=== PATIENT | female | born 1985 | race Caucasian/White ===

== ENCOUNTER → 2017-12-28 16:31 | Outpatient (CLI) | payer OTHER, SELFPAY ==
[2017-12-28 18:08] LABS: Thyroid Stim Hormone (TSH) 1.82 uIU/mL (0.358-3.74)
[2017-12-28 18:16] LABS: Vitamin D,25 Hydroxy 23.1 ng/mL (29.95-100.01)
== END ==
PROVIDERS: Family Provider Family Medicine; PCP Family Medicine; Visit Provider Family Medicine
DX: F41.9 Anxiety disorder, unspecified (principal)
CPT/HCPCS: 36415; 82306; 84443

== ENCOUNTER → 2018-01-30 09:55 | Outpatient (CLI) | payer OTHER, SELFPAY ==
[2017-06-27 10:36] VITALS: BMI 22.1
[2018-01-30 12:31] LABS: Absolute Lymphocyte Count 1.49 X10^3/ul (0.83-4.51); Absolute Neutrophil Count 6.6 X10^3/uL (2.0-7.7); Basophil# 0.05 X10^3/uL; Basophil% 0.6 % (0-1); Eosinophil# 0.25 X10^3/uL; Eosinophils% 2.8 % (0-5); Hematocrit 43.6 % (37-47); Hemoglobin 14.1 g/dl (12.0-15.0); Lymphocyte # 1.49 X10^3/ul (4.0); Lymphocyte % 16.4 % (19-41); Mean Corp Hgb Conc 32.3 g/gl (32-36); Mean Corpuscular Hgb 30.1 pg (27.0-32.0); Mean Platelet Vol. 9.4 fl (6.2-12.0); Monocyte# 0.69 X10^3/uL; Monocyte% 7.6 % (0-10); Neutrophil # 6.58 X10^3/uL (2.7-7.7); Neutrophil % 72.5 % (47-70); Platelet Count 370 K/mm3 (150-450); RBC Distribution Width CV 12.9 % (11.6-14.6); RBC Distribution Width SD 43.7 fl (35.1-43.9); Red Blood Count 4.69 M/mm3 (4.2-5.4); White Blood Count 9.1 K/mm3 (4.4-11.0)
[2018-01-30 12:41] LABS: POSITIVE COUNT NO; POSITIVE DIFFERENTIAL NO; POSITIVE MORPHOLOGY NO
--- OUTSIDE RECORDS SUMMARY | 2018-05-03 12:56 | XMS RPT_ITS ---
:1985 Author Organization OHIP Care Team Providers Name Role Phone Renata Mendez Attending Unavailable PROVIDER, UNKNOWN Referring Unavailable No, PCP Primary Care Unavailable Noé Hurtado Attending Unavailable PROVIDER, UNKNOWN Referring Unavailable PROVIDER, UNKNOWN Primary Care Unavailable Noé Hurtado Attending Unavailable PROVIDER, UNKNOWN Referring Unavailable No, PCP Primary Care Unavailable Nething, Vance Attending Unavailable PROVIDER, UNKNOWN Referring Unavailable No, PCP Primary Care Unavailable Nething, Vance Attending Unavailable PROVIDER, UNKNOWN Referring Unavailable No, PCP Primary Care Unavailable Nething, Vance Attending Unavailable PROVIDER, UNKNOWN Referring Unavailable Miedel, Franca Primary Care Unavailable Nething, Vance Attending Unavailable PROVIDER, UNKNOWN Referring Unavailable Miedel, Franca Primary Care Unavailable Nething, Vance Attending Unavailable PROVIDER, UNKNOWN Referring Unavailable Miedel, Franca Primary Care Unavailable Amber Fulton Attending Unavailable Sindhu, Talia Referring Unavailable Talia Manley Primary Care Unavailable Miedel, Franca Attending Unavailable Miedel, Franca Primary Care Unavailable Miedel, Franca Attending Unavailable Miedel, Franca Primary Care Unavailable PROBLEMS PROBLEMS DATE TYPE CONDITION / CODE ATTENDING STATUS SOURCE 02/07/2018 Admitting Unspecified Nething, Active [facility] Diagnosis hydronephrosis / [facility] N13.30(ICD-10) Repository 02/07/2018 Admitting Crossing vessel and Nething, 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 [facility] w/o hydronephrosis / Repository N13.5(ICD-10) 01/18/2018 Admitting Congenital occlusion Nething, 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 / Repository Q62.11(ICD-10) 01/18/2018 Admitting Calculus of kidney / Nething, Active [facility] Diagnosis N20.0(ICD-10) [facility] Repository 12/28/2017 Unknown F41.9 [facility] Active [place] disorder, Community unspecified / Hospital F41.9(ICD-10) Repository 10/22/2017 Admitting Hydronephrosis w Nething, Active [facility] Diagnosis ureteral stricture, [facility] NEC / N13.1(ICD-10) Repository 10/22/2017 Admitting Hydronephrosis with Nething, Active [facility] Diagnosis renal and ureteral [facility] calculous Repository obstruction / N13.2(ICD-10) 10/17/2017 Admitting Encounter for other Nething, Active [facility] Diagnosis preprocedural [facility] examination / Repository Z01.818(ICD-10) 07/11/2017 Admitting Other specified Roter, [facility] and ureter / Repository N28.89(ICD-10) 07/11/2017 Admitting Unspecified Renata Mendez [facility] Diagnosis abdominal pain / System R10.9(ICD-10) Repository PROCEDURES PROCEDURES No Procedure Records FoundRESULTS RESULTS PROGRESS Observed: 02/10/2018 Status: COMPLETED Source: [place] 9:53 AM [facility] REPOSITORY HNO ID: [id number] Author: Kristian Hendrickson (Rhonda) Isidro Service: (none) Author Type: Nurse Practitioner Type: Progress Notes Filed: 02/10/2018 9:55 AM Note Text: Subjective HPI Patient presents with: Ear Pain: bilateral ears, sore throat and cough on amoxicillin x 7 days from PCP States sharp shooting intermittent pain. Denies any otc treatment for symptoms. Review of Systems Constitutional: Negative for chills, fever and malaise/fatigue. HENT: Positive for congestion, ear pain and sore throat. Eyes: Negative for discharge and redness. Respiratory: Positive for cough. Negative for hemoptysis, sputum production, shortness of breath and wheezing. Gastrointestinal: Negative for abdominal pain, diarrhea, nausea and vomiting. Skin: Negative for rash. Neurological: Negative for headaches. PAST MEDICAL HISTORY Diagnosis Date - Anemia PAST SURGICAL HISTORY Procedure Laterality Date - INCISION EARDRUM,ASPIR,GEN ANESTH Myringotomy/tubes - PAST SURGICAL HISTORY OF wisdom teeth ALLERGIES Patient has no known allergies. MEDICATIONS levonorgestrel (MIRENA) 20 mcg/24 hr (5 years) IUD Inserted in office predniSONE (DELTASONE) 20 mg tablet Take 2 tablets by mouth once daily for 5 days. Take daily with food. Fxcztmvq-Ac-Msu-Fe-FA tab Take 1 tablet by mouth. FAMILY HISTORY Problem Relation Age of Onset - Heart Father A FIB, PACEMAKER, HYPOTENTION - Breast Cancer Maternal Grandmother - Heart Maternal Grandfather HEART DISEASE - Breast Cancer Paternal Grandmother - Colon Cancer Paternal Grandfather - Heart Paternal Grandfather - other (migraines [Other]) Father - Emphysema Paternal Grandfather - other (Parkinsons disease [Other]) Maternal Grandfather - Cancer Paternal Grandfather Social History Substance Use Topics - Smoking status: Never Smoker - Smokeless tobacco: Never Used - Alcohol use No Objective Physical Exam Constitutional: She is well-developed, well-nourished, and in no distress. HENT: Head: Normocephalic. Right Ear: External ear and ear canal normal. Tympanic membrane is not erythematous. A middle ear effusion (clear) is present. Left Ear: External ear and ear canal normal. Tympanic membrane is not erythematous. A middle ear effusion (clear) is present. Nose: Rhinorrhea present. Right sinus exhibits no maxillary sinus tenderness and no frontal sinus tenderness. Left sinus exhibits no maxillary sinus tenderness and no frontal sinus tenderness. Mouth/Throat: Posterior oropharyngeal erythema (PND) present. Eyes: Conjunctivae are normal. Neck: Normal range of motion. Neck supple. Cardiovascular: Normal rate, regular rhythm and normal heart sounds. Pulmonary/Chest: Effort normal and breath sounds normal. No respiratory distress. She has no wheezes. Abdominal: Soft. She exhibits no distension. There is no tenderness. Lymphadenopathy: She has no cervical adenopathy. Skin: Skin is warm and dry. No rash noted. Nursing note and vitals reviewed. ASSESSMENT/PLAN: 1. Fluid level behind tympanic membrane of both ears - ICD9: 381.4, ICD10: H65.93 - May finish Amoxil -Prednisone - Supportive care with plenty of fluids, rest, and analgesia prn. - Follow up in 3-5 days if symptoms persist or worsen. Prescription instructions reviewed with patient as applicable. Patient advised if symptoms do not improve or if symptoms worsen sooner, to contact their primary care physician. Potential red flag symptoms discussed with the patient. Reviewed appropriate action plan to take if red flag symptoms occur. Patient agreeable to treatment plan. Kristian Osorio APRN.ROVING CAN TENDER CNOV Observed: 02/10/2018 Status: COMPLETED Source: [place] 8:45 AM [facility] REPOSITORY Office Visit (WSTR) JOSIE SÁNCHEZ ([id number]) 1985 F Date Time Provider Department 02/10/18 8:45 AM KRISTIAN OSORIO (FINAL TESTER) WSTR During your visit today, we recorded the following information about you: Temperature Pulse Respiration Blood pressure 96.9 degrees 78/minute 16/minute 120/68 Weight Last Period 55.3 kg 01/27/18 Kristian Osorio APRN.CNP 02/10/2018 9:55 AM Signed Subjective HPI Patient presents with: Ear Pain: bilateral ears, sore throat and cough on amoxicillin x 7 days from [facility] States sharp shooting intermittent pain. Denies any otc treatment for symptoms. Review of Systems Constitutional: Negative for chills, fever and malaise/fatigue. HENT: Positive for congestion, ear pain and sore throat. Eyes: Negative for discharge and redness. Respiratory: Positive for cough. Negative for hemoptysis, sputum production, shortness of breath and wheezing. Gastrointestinal: Negative for abdominal pain, diarrhea, nausea and vomiting. Skin: Negative for rash. Neurological: Negative for headaches. PAST MEDICAL HISTORY Diagnosis Date - Anemia PAST SURGICAL HISTORY Procedure Laterality Date - INCISION EARDRUM,ASPIR,GEN ANESTH Myringotomy/tubes - PAST SURGICAL HISTORY OF wisdom teeth ALLERGIES Patient has no known allergies. MEDICATIONS levonorgestrel (MIRENA) 20 mcg/24 hr (5 years) IUD Inserted in office predniSONE (DELTASONE) 20 mg tablet Take 2 tablets by mouth once daily for 5 days. Take daily with food. Jxyziken-Mw-Lmm-Fe-FA tab Take 1 tablet by mouth. FAMILY HISTORY Problem Relation Age of Onset - Heart Father A FIB, PACEMAKER, HYPOTENTION - Breast Cancer Maternal Grandmother - Heart Maternal Grandfather HEART DISEASE - Breast Cancer Paternal Grandmother - Colon Cancer Paternal Grandfather - Heart Paternal Grandfather - other (migraines [Other]) Father - Emphysema Paternal Grandfather - other (Parkinsons disease [Other]) Maternal Grandfather - Cancer Paternal Grandfather Social History Substance Use Topics - Smoking status: Never Smoker - Smokeless tobacco: Never Used - Alcohol use No Objective Physical Exam Constitutional: She is well-developed, well-nourished, and in no distress. HENT: Head: Normocephalic. Right Ear: External ear and ear canal normal. Tympanic membrane is not erythematous. A middle ear effusion (clear) is present. Left Ear: External ear and ear canal normal. Tympanic membrane is not erythematous. A middle ear effusion (clear) is present. Nose: Rhinorrhea present. Right sinus exhibits no maxillary sinus tenderness and no frontal sinus tenderness. Left sinus exhibits no maxillary sinus tenderness and no frontal sinus tenderness. Mouth/Throat: Posterior oropharyngeal erythema (PND) present. Eyes: Conjunctivae are normal. Neck: Normal range of motion. Neck supple. Cardiovascular: Normal rate, regular rhythm and normal heart sounds. Pulmonary/Chest: Effort normal and breath sounds normal. No respiratory distress. She has no wheezes. Abdominal: Soft. She exhibits no distension. There is no tenderness. Lymphadenopathy: She has no cervical adenopathy. Skin: Skin is warm and dry. No rash noted. Nursing note and vitals reviewed. ASSESSMENT/PLAN: 1. Fluid level behind tympanic membrane of both ears - ICD9: 381.4, ICD10: H65.93 - June finish Amoxil -Prednisone - Supportive care with plenty of fluids, rest, and analgesia prn. - Follow up in 3-5 days if symptoms persist or worsen. Prescription instructions reviewed with patient as applicable. Patient advised if symptoms do not improve or if symptoms worsen sooner, to contact their primary care physician. Potential red flag symptoms discussed with the patient. Reviewed appropriate action plan to take if red flag symptoms occur. Patient agreeable to treatment plan. Kristian Osorio, TREVER.ROVING CAN TENDER Referring Provider: SELF [[id number]] Allergies As of Date: 02/10/2018 (No Known Allergies) Date Reviewed: 02/10/2018 Reviewed by: Lia Camargo Ma - Fully Assessed Reason for Visit: Ear Pain [817] Cmt: bilateral ears, sore throat and cough on amoxicillin x 7 days Primary Visit Diagnosis:Fluid level behind tympanic membrane of both ears [H65.93] Order(s):predniSONE (DELTASONE) 20 mg tabletTake 2 tablets by mouth once daily for 5 days. Take daily with food.Disp: 10 tabletRfl: 0 Prescriptions as of 02/10/2018 Sig: LEVONORGESTREL 20 MCG/24 HR (* Inserted in office Patient not taking: Reported on 02/10/2018 PREDNISONE 20 MG TABLET Take 2 tablets by mouth once * VITAMIN,CALCIUM,MINE* Take 1 tablet by mouth. Problem List As Of Date 02/10/2018 Noted Resolved Encounter for supervision of normal first pregn*INVALID FOR*01/19/2016 More... Prescriptions ordered this encounter Disp Refills Start End PREDNISONE 20 MG TABLET 10 t* 0 02/10/2018 02/15/2018 Route: ORAL Sig: Take 2 tablets by mouth once daily for 5 days. Take daily with food. Disposition: Return if symptoms worsen or fail to improve. Follow-up and Disposition History Recorded Encounter Status:Closed by KRISTIAN OSORIO on 02/10/18 NM KIDNEY IMAGING W/ Observed: 02/07/2018 Status: F Source: [employer] W/ PHARM 10:12 AM SYSTEM REPOSITORY Patient Name: JOSIE SÁNCHEZ Nuc Med Exam Date/Time 02/07/2018 09:39:39 EST Exam NM Kidney Imaging w/ Flow w/ Pharm Ordering Physician MD CASON JOSHUA B Accession Number [id number] CPT4 Codes 72796 () Reason For Exam Crossing vessel and stricture of ureter without hydronephrosis Report Indication: UPJ obstruction. The patient was injected with 8.9 mCi of tech 99m MAG3 and underwent routine renal scintigraphy. Comparison was made to the study dated 08/29/2017. Prompt flow is identified bilaterally. There is cortical uptake and excretion bilaterally. There is no evidence of right-sided obstruction. During the course of the study, there is progressive accumulation of radiotracer into a dilated left intrarenal collecting system which persists on post void imaging. The degree of dilation appears to have decreased when compared to the previous study. Split renal functions are fairly symmetric at 53% for the left kidney and 47% for the right kidney. The patient was injected with 40 mg of intravenous Lasix and imaging was continued for an additional 20 minutes. There is physiologic response by the left kidney to Lasix administration. The post Lasix T1/2 for the left kidney is approximately 4 minutes. There is no evidence of left- sided obstruction. This has significantly improved when compared to the prior study. Previously, the post Lasix T1/2 of the left kidney was greater than 20 minutes. Post Lasix imaging of the right kidney is noncontributory. IMPRESSION: 1. Left-sided hydronephrosis. The degree of hydronephrosis appears to have decreased when compared to the previous study. Physiologic response by the left kidney to Lasix administration with a post Lasix 1/2 of approximately 4 minutes. No evidence of left-sided obstruction. 2. No evidence of right-sided hydronephrosis or obstruction. 3. Fairly symmetric split renal functions of 53% for the left kidney and 47% for the right kidney. Report Dictated on Final Dictating Physician: DO FRANKLIN ANTHONY Signed Date and Time: 02/07/2018 10:22 am Signed by: DO FRANKLIN ANTHONY Transcribed Date and Time: 02/07/2018 10:24 CALCULI ANALYSIS(STONE) Collected: 02/03/2018 Status: F Source: [employer] 7:00 AM SYSTEM REPOSITORY TYPE CODE TESTS RESULT OUT OF REFERENCE UNITS RANGE LAB CALCR mg Calculi Mass 69 LAB CALC1 NA Calculi Number 1 LAB CALC2 mm Calculi Size 5 to 9 LAB CALC3 NA Calculi Description See Note Result Comment: Specimen consists of a single, medium, light jeffers, crystalline calculus. LAB CALC4 NA Calculi Composition See Note Result Comment: Calculi composed primarily of: 20% calcium oxalate (monohydrate and dihydrate), 10% calcium monohydrogen phosphate dihydrate (brushite), and 70% calcium phosphate (hydroxy- and carbonate- apatite). INTERPRETIVE INFORMATION: Calculi (Stone) analysis Calculi are the products of physiological processes that yield crystalline compounds in a matrix of biological compounds and blood. Matrix components are not reported. The clinically significant crystalline components identified in calculi specimens are reported. Gross description may not be consistent with composition determined by FTIR analysis. Performed by [facility], [address] [place] [id number] [email or web address], Dionicio Cage MD - Lab. Director Performed By: #### CALCO #### The performing lab is in the report. CBC W/DIFF, AUTOMATED Collected: 01/30/2018 Status: F Source: [place] 9:57 AM [facility] REPOSITORY TYPE CODE TESTS RESULT OUT OF RANGE REFERENCE UNITS LAB L100.1000 4.4-11.0 K/mm3 Normal WBC 9.1 LAB L100.1200 4.2-5.4 M/mm3 Normal RBC 4.69 LAB L100.1300 12.0-15.0 g/dl Normal HGB 14.1 LAB L100.1400 37-47 % Normal HCT 43.6 LAB L100.1500 81-99 fL Normal MCV 93.0 LAB L100.1600 27.0-32.0 pg Normal MCH 30.1 LAB L100.1700 32-36 g/gl Normal MCHC 32.3 LAB L100.1810 11.6-14.6 % Normal RDW CV 12.9 LAB L100.1820 35.1-43.9 fl Normal RDW SD 43.7 LAB L100.1900 150-450 K/mm3 Normal PLT 370 LAB L100.2000 6.2-12.0 fl Normal MPV 9.4 LAB L100.2100 47-70 % High NEUT% 72.5 LAB L100.2200 19-41 % Low LY% 16.4 LAB L100.2300 0-10 % Normal MONO% 7.6 LAB L100.2400 0-5 % Normal EO% 2.8 LAB L100.2500 0-1 % Normal BASO% 0.6 LAB L100.2550 0.0-0.9 % Normal IM GRAN % 0.100 Result Comment: IG% - Immature Granulocytes (promyelocytes, myelocytes and metamyelocytes) > 1% indicates that a LEFT SHIFT is Present. LAB L100.2620 2.0-7.7 X10 3/uL Normal Absolute Neut 6.6 LAB L100.2720 0.83-4.51 X10 3/ul Normal Absolute Lymph 1.49 Performed By: #### L100.0100 #### [facility] [address] [place] [address]. [place], [place], [address] US RETROPERITONEAL LIMITED Observed: 01/18/2018 Status: F Source: [employer] 10:55 AM SYSTEM REPOSITORY Patient Name: JOSIE SÁNCHEZ Ultrasound Exam Date/Time 01/18/2018 08:45:00 EST Exam US Retroperitoneal Limited Ordering Physician MD CASON JOSHUA B Accession Number [id number] CPT4 Codes 75750 () Reason For Exam Congenital occlusion of ureteropelvic junction Report Renal ultrasound, 01/18/2018. Reason for examination: Congenital ureteropelvic junction obstruction. COMPARISON: CT of the abdomen and pelvis dated July 11, 2017. FINDINGS: The right kidney measures 11.1 x 4.3 x 3.8 cm. The left kidney measures 11.6 x 5.3 x 4.5 cm. No renal lesion is noted. There is mild to moderate left hydronephrosis which appears to have decreased somewhat compared with the prior CT. Nonobstructing subcentimeter calculi are noted in the left kidney, the largest of which measures approximately 0.8 cm in maximum dimension. Limited imaging urinary bladder demonstrates no mass or calculus. IMPRESSION: Mild to moderate left hydronephrosis which appears somewhat decreased compared with the prior CT. Nonobstructing left renal calculi. Report Dictated on Final Dictating Physician: MD MAZARIEGOS JOE M Signed Date and Time: 01/18/2018 11:35 am Signed by: MD MAZARIEGOS JOE M Transcribed Date and Time: 01/18/2018 11:36 THYROID STIM HORMONE Collected: 12/28/2017 Status: F Source: [place] (TSH) 4:34 PM [facility] REPOSITORY TYPE CODE TESTS RESULT OUT OF RANGE REFERENCE UNITS LAB L501.9520 0.358-3.74 uIU/mL Normal TSH 1.82 Performed By: #### L501.9520 #### [facility] [address] [facility] [facility]. [place], [place], [address] VITAMIN D,25 HYDROXY Collected: 12/28/2017 Status: F Source: [place] 4:34 PM [facility] REPOSITORY TYPE CODE TESTS RESULT OUT OF REFERENCE UNITS RANGE LAB L506.1000 29.95-100.01 ng/mL Low Vitamin D 23.1 25-OH Result Comment: Vitamin D 25(OH) Status Range Deficiency <20 ng/mL (50nmol/L) Insuffciency 20 - 30 ng/mL (50 - 75 nmol/L) Sufficiency 30 - 100 ng/mL (75 - 250 nmol/L) Toxicity >100 ng/mL (>250 nmol/L) Performed By: #### L506.1000 #### [facility] [address] [place], [place], [id number] HEMOGRAM W/ AUTODIFF Collected: 10/23/2017 Status: F Source: [employer] 4:56 AM SYSTEM REPOSITORY TYPE CODE TESTS RESULT OUT OF REFERENCE UNITS RANGE LAB IWBC 3.6-10.7 10*3/uL WBC High 11.0 LAB RBC 3.80-5.20 10*6/uL RBC Normal 4.31 LAB HGB 11.7-16.0 g/dL Hemoglobin Normal 13.4 LAB HCT 35.0-47.0 % Hematocrit Normal 39.8 LAB MCV 79.0-98.0 fL MCV Normal 92.3 LAB MCH 26.0-34.0 pg MCH Normal 31.1 LAB MCHC 32.0-36.0 % MCHC Normal 33.7 LAB RDW 11.5-14.5 % RDW Normal 12.7 LAB PLT 140-440 10*3/uL Platelet Normal 301 LAB MPV 7.4-10.4 fL MPV Normal 8.1 LAB GRAN% 40.0-80.0 % Granulocytes High 88.0 LAB LYMP% 20.0-40.0 % Low Lymphocytes 6.9 LAB MONO% 2.0-10.0 % Monocytes Normal 5.0 LAB EOS% 1.0-6.0 % Low Eosinophils 0.0 LAB BAS% 0.0-2.0 % Basophils Normal 0.1 LAB ANC 1.8-7.0 10*3/uL Abs High Neutrophile Cnt 9.6 LAB ALC 1.0-4.3 10*3/uL Low Abs Lymph Cnt 0.8 LAB AMC 0.0-0.8 10*3/uL Abs Monocyte Normal Cnt 0.6 LAB AEC 0.0-0.5 10*3/uL Abs Eosin Cnt Normal 0.0 LAB ABC 0.0-0.2 10*3/uL Abs Baso Cnt Normal 0.0 Performed By: #### HEMDF #### [email or web address] [address] [place] [phone] BASIC METABOLIC PANEL Collected: 10/23/2017 Status: F Source: [employer] 4:56 AM SYSTEM REPOSITORY TYPE CODE TESTS RESULT OUT OF RANGE REFERENCE UNITS LAB NA3 137-145 mmol/L Sodium Normal 139 LAB K3 3.5-5.1 mmol/L Normal Potassium 4.5 LAB CL3 98-107 mmol/L High Chloride 111 LAB CO23 22-30 mmol/L Low Carbon Dioxide 21 LAB ANIN3 NA Anion Gap 7 LAB GLUC3 70-100 mg/dL High Glucose 105 LAB BUN3 7-20 mg/dL Urea Normal Nitrogen 11 LAB CRET3 0.52-1.25 mg/dL Normal Creatinine 0.73 LAB GF3BR >60 mL/min eGFR > 60.0 LAB GF3WR >60 mL/min eGFR OTHER > 60.0 Result Comment: Source- MDRD equation with creatinine calibration to IDMS(NKDEP) eGFR not recommended for drug dose adjustment LAB CA3 8.4-10.4 mg/dL Low Calcium 8.2 Performed By: #### BMP3 #### [facility] [address] [place] [id number] CREATININE, BODY FLUID Collected: 10/23/2017 Status: F Source: [employer] 4:56 AM SYSTEM REPOSITORY TYPE CODE TESTS RESULT OUT OF RANGE REFERENCE UNITS LAB 3CRMS No Range mg/dL 0.76 Creatinine, Body Fluid LAB 3SRC NA Fluid Drainage(JOSHUA) Type Performed By: #### CRMS3 #### [facility] [address] [phone] Observed: 10/22/2017 Status: F Source: [employer] SURGICAL PATHOLOGY 7:25 PM SYSTEM REPOSITORY [id number] [facility] PATHOLOGY AND LABORATORY MEDICINE [address] [place] [id number] FINAL SURGICAL PATHOLOGY REPORT NAME: JOSIE SÁNCHEZ : 1985 32 Y F BILLING NO.: [id number] LOCATION: [address] [place] [address] B PROCEDURE 10/22/2017 DATE: SURGEON: VANCE CASON M.D. RECEIVED 10/23/2017 DATE: ATTENDING: VANCE CASON M.D. REPORT DATE: 10/24/2017 COPIES TO: DIAGNOSIS: LEFT UPJ OBSTRUCTION, EXCISION - BENIGN UROTHELIUM WITH MINIMAL CHRONIC INFLAMMATION NEGATIVE FOR DYSPLASIA OR MALIGNANCY JAW/SSF <Sign Out Dr. Malone> VANCE BORREGO M.D. CLINICAL INFORMATION: UPJ obstruction SPECIMEN: TISSUE NOS , left UP J OBSTRUCTION GROSS DESCRIPTION: Left renal calculi Received in formalin is an irregular rubbery castellanos tissue segment 0.7 x 0.7 x 0.6 cm. The cut surfaces are white-castellanos and grossly unremarkable. The specimen is bisected and entirely submitted. (2 ns, 1) JCK/IRWIN Disclaimer: The following statement applies to all immunohistochemistry, in situ hybridization, molecular studies, and immunofluorescence testing. The use of one or more reagents in the above tests is regulated as an analyte specific reagent (ASR). These tests were developed and their performance characteristics determined by the clinical laboratories of [facility]. They have not been cleared by the US Food and Drug Administration (FDA). The FDA has determined that such clearance or approval is not necessary. All the above immunostains were performed on paraffin embedded tissue. Appropriate positive and negative controls (where applicable) were run in parallel with the patient's specimen; these controls showed expected staining pattern, with acceptable intensity of staining. Immunohistochemical assays have not been validated on decalcified tissues. Results should be interpreted with caution given the raised possibility of false negativity on decalcified specimens. Professional Performing Location: [place] [address]. DEPARTMENT OF PATHOLOGY AND LABORATORY MEDICINE [place], [place] [address] CALCULI ANALYSIS(STONE) Collected: 10/22/2017 Status: F Source: [employer] 6:38 PM SYSTEM REPOSITORY TYPE CODE TESTS RESULT OUT OF REFERENCE UNITS RANGE LAB CALCR mg Calculi Mass 42 LAB CALC1 NA Calculi Number 3 LAB CALC2 mm Calculi Size Various LAB CALC3 NA Calculi Description See Note Result Comment: Specimen consists of three, various sized (1 mm to 9 mm), brown/jeffers, irregular calculi fragments. LAB CALC4 NA Calculi Composition See Note Result Comment: Calculi composed primarily of: 10% calcium oxalate monohydrate, and 90% calcium phosphate (hydroxy- and carbonate- apatite). INTERPRETIVE INFORMATION: Calculi (Stone) analysis Calculi are the products of physiological processes that yield crystalline compounds in a matrix of biological compounds and blood. Matrix components are not reported. The clinically significant crystalline components identified in calculi specimens are reported. Gross description may not be consistent with composition determined by FTIR analysis. Performed by [facility], [address] [place] [id number] [email or web address], Dionicio Cage MD - Lab. Director Performed By: #### CALCO #### The performing lab is in the report. HCG,URINE QUAL Collected: 10/22/2017 Status: F Source: [employer] 2:10 PM SYSTEM REPOSITORY TYPE CODE TESTS RESULT OUT OF REFERENCE UNITS RANGE LAB HCGUR Negative NA Negative HCG,Urine Qual Result Comment: is the most common reason for HCG in urine, although choriocarcinoma, hydatidiform mole, and certain nontropho- blastic malignancies also result in detectable urinary HCG levels. Sensitivity = 20mIU/mL. Performed By: #### HCGUR #### [employer] [address] [place] [address] HEMOGLOBIN AND Collected: 10/17/2017 Status: F Source: [employer] HEMATOCRIT 9:57 AM SYSTEM REPOSITORY TYPE CODE TESTS RESULT OUT OF RANGE REFERENCE UNITS LAB HGB 11.7-16.0 g/dL Normal Hemoglobin 13.9 LAB HCT 35.0-47.0 % Normal Hematocrit 41.6 Performed By: #### HGHCT #### [employer] [address] [place] [address] NM KIDNEY IMAGING W/ Observed: 08/30/2017 Status: F Source: [employer] FLOW W/ PHARM 7:15 AM SYSTEM REPOSITORY Patient Name: JOSIE SÁNCHEZ Nuc Med Exam Date/Time 08/29/2017 15:44:07 EDT Exam NM Kidney Imaging w/ Flow w/ Pharm Ordering Physician NOÉ HURTADO Accession Number [id number] CPT4 Codes 78500 () Reason For Exam left UPJ obstruction, left hydronephrosis Report History: Hydronephrosis Dose: 8.5 mCi Tc99m MAG3 Findings: Imaging was viewed on a computer workstation. Routine imaging shows uptake and excretion bilaterally. The left kidney contributes 50 % and the right contributes 50 % to total renal function. There is left-sided collecting system distention and tracer retention, as seen on post void imaging. Lasix was administered and imaging continued. The T1/2 for emptying on the left is greater than 20 minutes. The normal range is less than 10 minutes (10- 20 minutes suggests partial obstruction, over twenty minutes definite obstruction). IMPRESSION: Distended left collecting system with poor response to Lasix compatible with obstruction. Report Dictated on Final Dictated: 08/30/2017 7:15 am Dictating Physician: MD TALBOT JOHN Signed Date and Time: 08/30/2017 7:17 am Signed by: MD TALBOT JOHN Transcribed Date and Time: 08/30/2017 7:15 CT ABDOMEN/PELVIS W/O Observed: 07/11/2017 Status: F Source: [employer] CONTRAST 2:03 PM SYSTEM REPOSITORY Patient Name: JOSIE SÁNCHEZ CT Exam Date/Time 07/11/2017 13:39:[address] Abdomen/Pelvis (No PO, No IV) Ordering Physician RENATA KRISHNA Accession Number [id number] CPT4 Codes 83038 (CT Abdomen/Pelvis (No PO, No IV)) Reason For Exam FLANK PAIN, STONE DISEASE SUSPECTED Report CT scan abdomen: 07/11/[address] scan pelvis: 07/11/2017 . Clinical Information: Left-sided pain . CT scan abdomen: CT scans of the abdomen were performed at 3 mm slice thickness with no oral or intravenous contrast as requested. No prior studies for comparison. Limited slices through the lower lung elizondo reveal no pleural or parenchymal abnormalities in the lung bases. Without the administration of oral or intravenous contrast, evaluation of solid and hollow organs is limited. The liver, spleen and pancreas are grossly normal. No free peritoneal fluid or air is seen. No retroperitoneal lymphadenopathy is identified. There is a marked left hydronephrosis with cortical thinning indicating that this is a long-standing process. There are calcifications layering in a lower pole calyx. The left renal pelvis is markedly dilated. The left ureter is not unusually dilated suggesting that this represents a ureteropelvic junction stenosis. No abnormal calcifications are identified along the expected course of the left ureter. The right kidney is within normal limits without evidence of hydronephrosis. CT scan pelvis: CT scans the pelvis were performed at 3 mm slice thickness with no oral or intravenous contrast as requested. There is extensive fecal residue throughout the colon. Consider constipation. The appendix was isolated as a separate structure and appears unremarkable. No pelvic mass lesions, fluid collections or lymphadenopathy is seen. No abnormal calcifications are identified to suggest distal ureteral calculi. Impression: Study limited due to lack of contrast. Findings suggestive of a long-standing hydronephrosis on the left most likely consistent with a ureteropelvic junction stenosis. Further clinical evaluation warranted. Report Dictated on Final Dictating Physician: MD SCHAFFER RISA Signed Date and Time: 07/11/2017 2:05 pm Signed by: MD SCHAFFER RISA Transcribed Date and Time: 07/11/2017 2:06 HCG,URINE QUAL Collected: 07/11/2017 Status: F Source: [employer] 1:22 PM SYSTEM REPOSITORY TYPE CODE TESTS RESULT OUT OF REFERENCE UNITS RANGE LAB HCGUR Negative NA Negative HCG,Urine Qual Result Comment: is the most common reason for HCG in urine, although choriocarcinoma, hydatidiform mole, and certain nontropho- blastic malignancies also result in detectable urinary HCG levels. Sensitivity = 20mIU/mL. Performed By: #### HCGUR, UAMAC #### [employer] [facility] [address] [place] [address] URINALYSIS,MACRO Collected: 07/11/2017 Status: F Source: [employer] 1:22 PM SYSTEM REPOSITORY TYPE CODE TESTS RESULT OUT OF REFERENCE UNITS RANGE LAB APPUR Clear NA Appearance CLEAR LAB COLUR Lt. Yellow NA Color YELLOW LAB USG 1.005-1.030 NA Specific Normal [place],Urine 1.020 LAB UPH 5.0-8.0 NA pH,Urine Normal 7.0 LAB ULUK Negative NA Leukocytes NEGATIVE LAB UNIT Negative NA Nitrites NEGATIVE LAB UPRO Negative mg/dL Total Protein,Urine NEGATIVE LAB UGLU Negative mg/dL Glucose,Urine NEGATIVE LAB UKET Negative mg/dL Ketone,Urine 1 + LAB UURO 0-1 mg/dL Urobilinogen 0.2 LAB UBIL Negative NA Bilirubin,Ur NEGATIVE LAB UBLD Negative {RBC}/uL Occult Blood,Ur NEGATIVE Performed By: #### HCGUR, UAMAC #### [facility] [address] [place] [address] HEMOGRAM Collected: 07/11/2017 Status: F Source: [employer] 1:20 PM SYSTEM REPOSITORY TYPE CODE TESTS RESULT OUT OF RANGE REFERENCE UNITS LAB IWBC 3.6-10.7 10*3/uL High WBC 11.1 LAB RBC 3.80-5.20 10*6/uL RBC Normal 4.71 LAB HGB 11.7-16.0 g/dL Normal Hemoglobin 13.9 LAB HCT 35.0-47.0 % Normal Hematocrit 42.4 LAB MCV 79.0-98.0 fL MCV Normal 90.1 LAB MCH 26.0-34.0 pg MCH Normal 29.5 LAB MCHC 32.0-36.0 % MCHC Normal 32.7 LAB RDW 11.5-14.5 % RDW Normal 12.9 LAB PLT 140-440 10*3/uL Platelet Normal 323 LAB MPV 7.4-10.4 fL MPV Normal 8.0 Performed By: #### HEMOG, BMP3 #### [facility] [address] [place] [address] BASIC METABOLIC PANEL Collected: 07/11/2017 Status: F Source: [employer] 1:20 PM SYSTEM REPOSITORY TYPE CODE TESTS RESULT OUT OF RANGE REFERENCE UNITS LAB NA3 135-145 mmol/L Sodium Normal 140 LAB K3 3.5-5.1 mmol/L Low Potassium 3.4 LAB CL3 98-109 mmol/L Chloride Normal 103 LAB CO23 21-32 mmol/L Carbon Normal Dioxide 25 LAB ANIN3 NA Anion Gap 12 LAB GLUC3 70-100 mg/dL High Glucose 116 LAB BUN3 7-25 mg/dL Urea Normal Nitrogen 18 LAB CRET3 0.55-1.40 mg/dL Normal Creatinine 0.84 LAB GF3BR >60 mL/min eGFR > 60.0 LAB GF3WR >60 mL/min eGFR OTHER > 60.0 Result Comment: Source- MDRD equation with creatinine calibration to IDMS(NKDEP) eGFR not recommended for drug dose adjustment LAB CA3 8.2-10.1 mg/dL Normal Calcium 9.6 Performed By: #### [email or web address], BMP3 #### [employer] [facility] [address] [place] [address] PROGRAMMER OFFICE VISIT Observed: 07/03/2017 Status: F Source: [facility] 6:31 AM [facility] 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) Adhesive Sprayer Required: No Is patient in pain?: No Allergies No Known Allergies Allergy (Verified 06/27/17 10:36) Medications levonorgestrel 20 mcg/24 hr (5 years) intrauterine device 1 insert INTRAUTERINE ONCE 06/27/17 [History Confirmed 06/27/17] multivitamin tablet 1 tab PO QDAY 06/27/17 [History Confirmed 06/27/17] Is last menstrual period known: Yes Last Menstral Period: 06/23/17 Post menopausal: No Patient : No : No PFSH Family History Grandmother Breast cancer Ovarian cancer Social History Smoking Status: Never smoker alcohol intake: current alcohol intake frequency: holidays/special occasions only substance use type: does not use caffeine: No what type of physical activity do you participate in: other details: work out videos frequency: 3-4 times per week seatbelt use: always do you feel safe at home: Yes additional social history: - [employer] 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 DatName GA/WeeksOutcome Route [facility] LocaProviderFOB e ht en ia tn 12/02/15Ava 37 live birNSVD 7 lbs 9 Female [facility] Dr[facility] liz chas l term HPI Annual (MASSEUR/MASSEUSE): Details: JOSIE SÁNCHEZ is a 32 year old who presents for annual exam. wants iud removed Last PAP: 2015 History of abnormal PAP: no Last mammogram: History of abnormal mammogram: Colon cancer screening: Other preventative health care screenings: Female Reproductive History Last Menstral Period: 06/23/17 Cycle Length: 21-35 Questions: Metorrhagia: No, Sexually active: Yes, Dyspareunia: No, PCB: No ROS Const Constitutional: Reports as per HPI; denies poor appetite, fatigue, increased appetite, weight gain or weight loss Cardio Card: Denies chest pain Resp Resp: Denies dyspnea or cough GI GI: Reports as per HPI; denies bloating, abdominal pain, constipation, vomiting or nausea : Reports as per HPI and other; denies blood in urine, vaginal odor, vaginal itching, vaginal dryness, vaginal discharge, urinary urgency, urinary incontinence, urinary frequency, pelvic pain, painful urination, difficulty urinating, prolapse symptoms or nipple discharge Skin Skin/Breast: Denies breast pain, breast skin changes, nipple discharge, breast lump or changing lesions Exam Const General: cooperative, healthy appearing, comfortable, no acute distress, well developed, well groomed HENVT Head: normal to inspection, normocephalic Ears: hearing grossly normal bilaterally, external ears normal Nose: external nose normal Face and sinus: normal facial exam Neck Neck: normal visual inspection, full ROM, no lymphadenopathy Thyroid: thyroid normal Chest Chest palpation AND inspection: normal inspection of the chest Breast inspection: normal inspection of the breasts, normal inspection of the axillae Breast palpation: normal palpation of the breasts, normal palpation of the axillae, no axillary lymphadenopathy Resp Effort AND Inspection: normal respiratory effort GI Inspection: normal to inspection, non-distended Palpation: no guarding, soft, no hepatosplenomegaly General: bladder normal to palpation External Female Exam: normal external appearance, normal appearance of the urethra, no lesions Urethra: normal appearance of the urethra, normal palpation Speculum Exam - Vagina: normal appearance of the vagina, normal vaginal discharge Speculum Exam - Cervix: normal appearance of the cervix, no cervical discharge, no lesions, nontender Bimanual Exam- Vagina AND Uterus: No cervical tenderness, normal bimanual exam, uterine size normal, bladder normal to palpation, uterine mobility normal, uterine consistency normal, uterus non-tender, no cervical motion tenderness Bimanual Exam- Adnexa, other: normal adnexae, no adnexal masses, adnexae non-tender Skin General: no rashes or lesions noted Neuro General: alert, moves all extremities, no focal motor deficits Extrem General: no pedal edema, normal to inspection Psych Appearance: grossly normal Mental Status: mental status grossly normal Affect: normal affect Speech and Movement: speech and movement normal Attitude: cooperative Office Procedures IUD Removal IUD Removal Details: Sign out documentation: Completed Procedure: Speculum placed in vagina, IUD string visualized and grasped with ring forceps. Assessment AND Plan Problems 1. Encounter for gynecological examination without abnormal finding Z01.419 2. Encounter for IUD removal Z30.432 Plan Cervical cancer screenin u pto date Breast cancer screening: clinical STD prevention and contraceptive options including their risks, benefits, and alternatives were reviewed with the patient and she chooses: iud removed, preconception Encouraged maintenance of a healthy weight and active lifestyle and handout given. Calcium/vitamin D recommendations provided. Annual exam handout including recommendations for good health guidelines and basic screening information given. Problem list up to date, see problem list details for any additional plan information. follow up in one year for annual health maintenance exam or sooner if needed. Orders Orders: Medications Discontinued: ibuprofen Discontinued Reason: Order Oyzwb283 mg PO TID PRN PRN Pain Franca Chisholm eted vit,[id number] 29-1 mg Disc1 tab PO DAILY@1200 Franca Chisholm ontinued Reason: Order Completed Coding Level of Care Code Off vis,est,prev 18-39yrs Diagnoses Encounter for gynecological examination without abnormal finding Z01.419 Gynecological examination findings: abnormal findings ABSENT Encounter for IUD removal Z30.432 07/03/17 0631 <Electronically signed by Amber Fulton MD> Date Amber Fulton MD Cosigner Signature: Date (if applicable) CC: ALLERGIES ALLERGIES DATE TYPE / CODE NAME / CODE REACTION SEVERITY SOURCE 06/27/2017 Drug No Known Unknown [facility] Allergy/416 Allergies/U66979 [facility] 619252(SNOM 0388(RXNORM) Repository ED CT) Drug NO KNOWN [facility] Class/27266 ALLERGIES Main [place] 1003(SNOMED Repository CT) ENCOUNTERS ENCOUNTERS ADMIT/DISCHARGE ACCOUNT NUMBER ADMITTING ENCOUNTER LOCATION SOURCE CLASS 02/10/2018/02/12/20 [id number] Ambulatory [address] Repository 02/07/2018 [id number] Ambulatory [facility] Repository 02/07/2018 [id number] [facility] Repository 01/30/2018 [id number] [facility] ding:LAB.FUT Repository URE 01/18/2018 [id number] [facility] System Repository 12/28/2017 [id number] [facility] ding:BFHLAB Repository 10/22/2017 [id number] Inpatient BuildinA [facility] Encounter 4NRoom: System [id number]: Repository [id number] 10/17/2017 [id number] Ambulatory [facility] Repository 08/29/2017 [id number] [facility] System Repository 08/29/2017 [id number] Ambulatory [facility] Repository 07/11/2017 [id number] Emergency BuildinB [facility] EDRoom: System [id number]: Repository [id number] 06/27/2017/06/28/19 [id number] Ambulatory BMSBuilding: [place] [address] [facility] Repository 05/04/2017 [id number] Ambulatory [facility] Repository PAYERS PAYERS ENCOUNTER GUARANTOR PAYER SUBSCRIBER SOURCE 02/07/2018 Josie [facility]: Insurance:AultCarePol OsborneDOB: System icy Number: Effective [id number] Repository [address] Date: [place], [place] [address]Raa: (HP) 02/07/2018 Josie Primary [facility]: Insurance:[employer]ultCarePol OsborneDOB: System icy Number: Effective [id number] Repository [address] Date: [place], [place] [address]Lqd: (HP) 01/30/2018 JOSIE F Primary JOSIE F [place] [id number] Insurance:AULTCAREPol OSBORNEDOB: Community [facility] icy Number: [id number] [place], [place] [id number] Repository [address]Vjj: (330) Date:[id number] [phone] (HP) [address] [place] [phone]: 01/30/2018 Secondary NOT GIVENUNK Isael Insurance:SELF PAY [facility] Number: Effective Repository Date:2017-12-31 01/18/2018 Josie Primary Josie [facility] OsborneDOB: Insurance:AultCarePol OsborneDOB: System icy Number: Effective [id number] Repository [address] Date: [place], [place] [address]Ycz: (HP) 12/28/2017 JOSIE F Primary JOSIE F [place] [id number] Insurance:AULTCAREPol OSBORNEDOB: Community HICK[place] icy Number: [id number] [place], [place] [id number] Repository [address]Thx: (330) Date:[id number] [phone] (HP) [address] [place] [phone]: 12/28/2017 Secondary NOT GIVENUNK Isael Insurance:SELF PAY [facility] Number: Effective Repository Date:2017-12-28 10/22/2017 [facility] Insurance:AultCarePol OsborneDOB: System icy Number: Effective [id number] Repository [address] Date: [place], [place] [address]Hcq: (HP) 10/17/2017 [facility]ie [facility]: Insurance:AultCarePol OsborneDOB: System icy Number: Effective [id number] Repository [address] Date: [place], [place] [address]Nim: (HP) 08/29/2017 Josie Primary [facility]: Insurance:AultCarePol OsborneDOB: System icy Number: Effective [id number] Repository [address] Date: [place], [place] [address]Tfm: (HP) 08/29/2017 Josie Primary [facility]: Insurance:AultCarePol OsborneDOB: System icy Number: Effective [id number] Repository [address] Date: [place], [place] [address]Tmz: (HP) 07/11/2017 Josie Primary [facility]ie [facility]: Insurance:AultCarePol OsborneDOB: System icy Number: Effective [id number] Repository [address] Date: [place], [place] [address]Ugo: (HP) 06/27/2017 JOSIE F Primary JOSIE F [place] [id number] Insurance:AULTCAREPol OSBORNEDOB: Community [place] icy Number: [id number] [place], [place] [id number] Repository [address]Udd: (330) Date:[id number] [phone] () [address], [place] [phone]: 06/27/2017 Secondary NOT GIVENUNK Isael Insurance:SELF PAY [facility] Number: Effective Repository Date:2017-05-15
== END ==
PROVIDERS: Family Provider Family Medicine; PCP Family Medicine; Visit Provider Family Medicine
DX: F41.9 Anxiety disorder, unspecified (principal)
CPT/HCPCS: 85025

== ENCOUNTER → 2018-06-17 14:02 | Outpatient (CLI) | payer OTHER, SELFPAY ==
[2018-06-17 14:00] VITALS: BMI 23.1
[2018-06-17 14:31] LABS: Absolute Lymphocyte Count 2.15 X10^3/ul (0.83-4.51); Absolute Neutrophil Count 7.6 X10^3/uL (2.0-7.7); Basophil# 0.05 X10^3/uL; Basophil% 0.4 % (0-1); Eosinophil# 1.19 X10^3/uL; Eosinophils% 10.2 % (0-5); Hematocrit 38.8 % (37-47); Lymphocyte # 2.15 X10^3/ul (4.0); Lymphocyte % 18.4 % (19-41); Mean Corp Hgb Conc 33.5 g/gl (32-36); Mean Corpuscular Hgb 30.2 pg (27.0-32.0); Mean Platelet Vol. 9.1 fl (6.2-12.0); Monocyte# 0.65 X10^3/uL; Monocyte% 5.6 % (0-10); Neutrophil # 7.62 X10^3/uL (2.7-7.7); Neutrophil % 65.2 % (47-70); Platelet Count 356 K/mm3 (150-450); RBC Distribution Width CV 12.8 % (11.6-14.6); RBC Distribution Width SD 42.2 fl (35.1-43.9); Red Blood Count 4.31 M/mm3 (4.2-5.4); White Blood Count 11.7 K/mm3 (4.4-11.0)
[2018-06-17 14:33] LABS: POSITIVE COUNT NO; POSITIVE DIFFERENTIAL NO; POSITIVE MORPHOLOGY NO
[2018-06-17 16:11] LABS: HIV - WCH Non-Reactive (Nonreactive); Rubella IgG 80.6 IU/mL
[2018-06-18 17:07] LABS: HEPATITIS B SURFACE AG Negative (Negative)
[2018-06-21 03:40] LABS: Rapid Plasmin Reagin (RPR) NONREACTIVE (NONREACTIVE)
== END ==
PROVIDERS: Family Provider Family Medicine; PCP Family Medicine; Visit Provider Obstetrics & Gynecology
DX: Z34.90 Encounter for supervision of normal pregnancy, unspecified, unspecified trimester (principal)
CPT/HCPCS: 36415; 85025; 86592; 86703; 86762; 86850; 86900; 87340

== ENCOUNTER → 2018-06-17 16:41 | Outpatient (CLI) | payer OTHER, SELFPAY ==
[2018-06-17 14:00] VITALS: BMI 23.1
[2018-06-17 20:13] LABS: Chlamydia Trachomatis by PCR Negative (Negative); Neisserai gonorrhoeae by PCR Negative (Negative); Probe Check PASS; Sample Adequacy Control PASS; Specimen Processing Control PASS
[2018-06-21 12:01] LABS: HPV APTIMA, High Risk Negative (Negative)
== END ==
PROVIDERS: Family Provider Family Medicine; PCP Family Medicine; Referring Provider Obstetrics & Gynecology; Visit Provider Obstetrics & Gynecology
DX: Z34.90 Encounter for supervision of normal pregnancy, unspecified, unspecified trimester (principal); Z12.4 Encounter for screening for malignant neoplasm of cervix
CPT/HCPCS: 87086; 87088; 87491; 87591; 87624; 88175; G0145

== ENCOUNTER 2018-10-07 17:00 | Outpatient (RCR) | payer BC, SELFPAY ==
[2018-09-20 14:35] VITALS: BMI 25.4
--- NOTE | 2018-09-20 15:59 | HP.PTEVAL_ITS ---
Patient's Visit Information JOSIE SÁNCHEZ is a 33 year old F referred to Physical Therapy by Amber Fulton MD with a diagnosis of DORSALGIA AND PELVIC/PERINEAL PAIN DURING . Date of Evaluation: 09/20/18 Physical Therapist: Janay Milan, PT, Cert MDT - Visit Plan Frequency: 2-3x /Week Duration: 4-6 Weeks Plan: *22 WEEKS * START SLOW H/O DELAYED INCREASED PAIN AFTER LAND EX. AQUATIC THERAPY FOR PAIN RELEIF, POSTURE CORRECTION/STRENGTHENING, INSTRUCTION IN APPROPRIATE BODY MECHANICS AND ACTIVITY MODIFICATIONS. DLS STARTING WITH A NEUTRAL SPINE PROGRESSING ROM TOLERATED. JIMMY LE ROM, STRETCHING AND STRENGTHENING. HEP INSTRUCTION. - Subjective Findings: Work/Leisure: STARTING A NEW JOB AT [employer] ABOUT 60% SITTING AND 40% STANDING. Disability: NO. Present symptoms: RIGHT SACRAL/ILIAC PAIN AND CENTRAL PUBIC BONE PAIN. NO NUMBNESS OR TINGLING. Present since: MIDDLE OF JULY 2018. Pain Scale: WORST 7/10, LEAST 0/10. Currently: 0/10. WORSENING. Commenced as a result of: . HAD IT WITH LAST IN SACRAL AREA. Symptoms at onset: RIGHT SI REGION. Worse: LIFTING, BENDING DOWN, STANDING A LOT, LYING IN BED - EITHER SIDE. EXERCISE VIDEO'S. Better: NOTHING. Disturbed sleep: NO. Previous history/Previous treatment: HAD THIS DURING LAST . MANIPULATION AFTER DELIVERY HELPED AND PAIN WENT AWAY AND DIDN'T COME BACK AGAIN UNTIL NOW. CHIROPRACTOR DURING AND AFTER BUT DIDN'T HELP. PT HELPED. Coughing/sneezing/straining: NO. Gait: PAINFUL. Difficulty initiating urinatin: NO. Accidents: NO. Unexplained weight loss: NO. Imaging: NO. PMH: UNREMARKABLE. Recent major surgery: UPJ OBSTRUCTION OF KIDNEY REPAIRED LAST OCT 2017 - Objective Sitting/Standing Posture: FAIR. RIGHT LE APPEARS LONGER THAN LEFT. Lordosis: INCREASED. Lateral shift: NO. Relevant shift: N/A. Other Observations: INDEP GAIT AND TRANSFERS. Motor deficit: JIMMY LE'S WFL. Sensory deficit: NO. ROM deficit: NO. Reflexes: NT. Dural Signs: NEGATIVE. Lumbar mvmt loss: flex - MIN. ext - NIL. R SG - NIL. L SG - NIL. Core strength: NT. Palpation: NO ACUTE TENDERNESS IN LUMBOPELVIC REGION. OTHER: ISO HIP ADD IN HOOKLYING DECREASES PAIN. BRIDGING AND ISO HIP ABD IN HOOKLYING INCRASE PAIN. BETTER AFTER ISO HIP ADD AND INSTRUCTED PATIENT IN THIS TECHNIQUE WITH CAREGIVER HELP X 3 HOLDING FOR A COUNT OF 5 WITH SUBMAX EFFORT TOLERATED. - Goals Goal 1:: DECREASE C/O BACK AND PELVIC PAIN Goal Time Frame: 4-6 Weeks Goal 2:: IMPROVE PERSONAL CARE, LIFTING, WALKING, SITTING, STANDING, SOCIAL LIFE, TRAVEL, WORK AND HOMEMAKING FUNCTION Goal Time Frame: 4-6 Weeks Goal 3:: INSTRUCT IN PROPHYLAXIS Goal Time Frame: 4-6 Weeks - Rehabilitation Potential Rehabilitation Potential: Fair - Anticipated Interventions Patient/Client Instruction: Educate patient on: Condition, Plan of Care, Risk Factors, Benefits of Fitness Program For the Purpose of:: To improve self management Therapeutic Exercise to Include: Strength training, Body mechanics, Postural training, In an aquatic setting, Dynamic Lumbar Stabilization For the Purpose of:: To decrease pain, To improve muscle performance and motor function, To increase tolerance to activity/condition/position, To improve ability of physical actions for home/community/work/leisure, To improve gait and locomotor functions Thank you for the opportunity to evaluate your patient. For Medicare and Medicare HMO plans, please review the plan of care and approve it. It will need to be FAXED BACK to us at [phone] for Medicare purposes. For Medicare only, by signing this I certify the plan of care. Please let me know if there are questions or concerns regarding this plan of care. Physician Signature: Date:
--- NOTE | 2018-10-18 13:57 | HP.PT.NRP ---
HP - Discharge Summary (1) - Patient Information JOSIE SÁNCHEZ was seen in my office for initial evaluation on 09/20/18. The following Plan of Care was established for this patient: Initial Frequency: 2-3x /Week Initial Duration: 4-6 Weeks - Anticipated Interventions Patient/Client Instruction: Educate patient on: Condition, Plan of Care, Risk Factors, Benefits of Fitness Program For the Purpose of:: To improve self management Therapeutic Exercise to Include: Strength training, Body mechanics, Postural training, In an aquatic setting, Dynamic Lumbar Stabilization For the Purpose of:: To decrease pain, To improve muscle performance and motor function, To increase tolerance to activity/condition/position, To improve ability of physical actions for home/community/work/leisure, To improve gait and locomotor functions This patient was last seen in our office 10/07/18. Pertinent comments regarding their Physical therapy will appear below: THIS PATIENT WAS SEEN FOR AN INITIAL PHYSICAL THERAPY EVALUATION AND THEN ATTENDED TWO AQUATIC THERAPY SESSIONS. I RECEIVED A NOTE TODAY STATING PATIENT CALLED AND CANCELLED ALL FUTURE APPOINTMENTS BECAUSE THE THERAPY IS NOT HELPING. AT THIS TIME IT IS APPROPRIATE FOR HER TO RETURN TO HER PHYSICIAN FOR FURTHER FOLLOW UP NEEDED. At this point I will be discontinuing this patient from physical therapy. I would be happy to see this patient again in the future if found appropriate by the physician. Thank you! Janay Milan, PT, Cert MDT
== END 2018-10-07 19:00 | disposition home or self-care (01) ==
LOC: PT 17:00
PROVIDERS: Family Provider Family Medicine; PCP Family Medicine; Referring Provider Obstetrics & Gynecology; Visit Provider Obstetrics & Gynecology
DX: O26.899 Other specified pregnancy related conditions, unspecified trimester (principal); R10.2 Pelvic and perineal pain; O99.89 Other specified diseases and conditions complicating pregnancy, childbirth and the puerperium; M54.9 Dorsalgia, unspecified
CPT/HCPCS: 97113; 97161; 97530

== ENCOUNTER → 2018-10-18 16:50 | Outpatient (CLI) | payer BC, SELFPAY ==
[2018-10-18 16:10] VITALS: BMI 25.4
[2018-10-18 17:31] LABS: Absolute Lymphocyte Count 2.04 X10^3/uL (0.83-4.51); Absolute Neutrophil Count 6.8 X10^3/uL (2.0-7.7); Basophil# 0.03 X10^3/uL; Basophil% 0.3 % (0-1); Eosinophil# 0.29 X10^3/uL; Eosinophils% 2.9 % (0-5); Hematocrit 36.1 % (37-47); Hemoglobin 11.8 g/dL (12.0-15.0); Lymphocyte # 2.04 X10^3/ul (4.0); Lymphocyte % 20.6 % (19-41); Mean Corp Hgb Conc 32.7 g/dL (32-36); Mean Corpuscular Hgb 31.7 pg (27.0-32.0); Mean Platelet Vol. 9.5 fl (6.2-12.0); Monocyte# 0.67 X10^3/uL; Monocyte% 6.8 % (0-10); NRBC Flagged by Analyzer 0 % (0-5); Neutrophil # 6.81 X10^3/uL (2.7-7.7); Neutrophil % 68.7 % (47-70); Platelet Count 310 K/mm3 (150-450); RBC Distribution Width CV 12.8 % (11.6-14.6); RBC Distribution Width SD 45.7 fl (35.1-43.9); Red Blood Count 3.72 M/mm3 (4.2-5.4); White Blood Count 9.9 K/mm3 (4.4-11.0)
[2018-10-18 17:34] LABS: Glucose Challenge Gest 1H 50g 132 mg/dL (70-140)
== END ==
PROVIDERS: Family Provider Family Medicine; PCP Family Medicine; Referring Provider Obstetrics & Gynecology; Visit Provider Obstetrics & Gynecology
DX: Z34.80 Encounter for supervision of other normal pregnancy, unspecified trimester (principal)
CPT/HCPCS: 36415; 82950; 85025

== ENCOUNTER → 2018-11-25 15:58 | Outpatient (CLI) | payer BC, SELFPAY ==
[2018-11-25 13:39] VITALS: BMI 29.7
== END ==
PROVIDERS: Family Provider Family Medicine; PCP Family Medicine; Referring Provider Nurse Practitioner Women's Health; Visit Provider Nurse Practitioner Women's Health
DX: N39.0 Urinary tract infection, site not specified (principal)
CPT/HCPCS: 87086; 87088

== ENCOUNTER → 2018-11-29 19:23 | Outpatient (CLI) | payer BC, SELFPAY ==
[2018-11-29 14:47] VITALS: BMI 29.7
--- NOTE | 2018-11-29 19:27 | US_ITS ---
STUDY: RENAL ULTRASOUND - COMPLETE REASON FOR EXAM: Female, 33 years old. Hematuria TECHNIQUE: Ultrasound evaluation of the kidneys was performed with real-time and static sesay-scale imaging. COMPARISON: None available. FINDINGS: RIGHT KIDNEY: Normal location of the right kidney, which is normal in size. The right kidney measures 11 cm. There is a normal cortex of the right kidney. There is no right renal mass or cyst. There are no right renal calculi. There is no right hydronephrosis. LEFT KIDNEY: Normal location of the left kidney, which is normal in size. The left kidney measures 13 cm. There is a normal cortex of the left kidney. There is no left renal mass or cyst. There is a left renal 1.7 cm stone in the central kidney. There is moderate left-sided hydronephrosis. AORTA: No evidence of abdominal aortic aneurysm. I.V.C.: The IVC is patent. BLADDER: The urinary bladder is partially distended and appears unremarkable. US/Kidney and Bladder IMPRESSION: Moderate left-sided hydronephrosis. Left renal 1.7 cm stone which appears to be in the central kidney although location is not conclusively shown. Correlate clinically. Electronically Signed: Kt Webster, at 21:35 EDT Tel , Service support ,
== END ==
PROVIDERS: Family Provider Family Medicine; PCP Family Medicine; Visit Provider Nurse Practitioner Women's Health
DX: M54.9 Dorsalgia, unspecified (principal); R31.9 Hematuria, unspecified
CPT/HCPCS: 76770

== ENCOUNTER → 2018-12-27 16:41 | Outpatient (CLI) | payer BC, SELFPAY ==
[2018-12-27 15:57] VITALS: BMI 29.7
== END ==
PROVIDERS: Family Provider Family Medicine; PCP Family Medicine; Referring Provider Nurse Practitioner Women's Health; Visit Provider Nurse Practitioner Women's Health
DX: Z34.80 Encounter for supervision of other normal pregnancy, unspecified trimester (principal)
CPT/HCPCS: 87081

== ENCOUNTER 2019-01-13 23:02 | Outpatient (CLI) | payer BC, SELFPAY ==
[2019-01-13 16:00] VITALS: BMI 29.7
[2019-01-14 00:13] VITALS: BMI 31.8
--- NOTE | 2019-01-17 03:55 | OB.TRI.NOTE ---
- Problem List (1) False labor Status: Acute History of Present Illness Date of Service: 01/13/19 Was patient seen by the physician?: No Reason For Visit: R/O History of Present Illness: questionable ROM Allergies No Known Allergies Allergy (Verified 01/14/19 19:32) - Pertinent Past Medical History Surgical History: Past Surgical History (Last Reviewed 01/15/19 @ 08:56 by Madeline Jacinto) UPJ obstruction, congenital Onset Date: ~10/2017 Dr. Palacios- surgeon NST - FHR Rate Baby A Baseline: 130 Variability:: Moderate Accelerations:: 15 x 15 Decelerations:: None NST Reactive:: Yes FHR Category:: Category I Uterine Activity:: irregular Impression/Plan false labor no ROM reactive nst dc home Multi Select Codes - Urinary/Genital Urinary/Genital CPT Codes: 75477-71 non-stress test Interp
== END 2019-01-14 01:10 | disposition home or self-care (01) ==
LOC: WPOUT 23:45 → WP 23:46
PROVIDERS: Family Provider Family Medicine; PCP Family Medicine; Referring Provider Obstetrics & Gynecology; Visit Provider Obstetrics & Gynecology
DX: O47.9 False labor, unspecified (principal); Z3A.00 Weeks of gestation of pregnancy not specified
CPT/HCPCS: 59025; 59050; 99218; G0378

== ENCOUNTER 2019-01-14 20:07 | Inpatient (IN) | payer BC, SELFPAY ==
[2019-01-14 00:13] VITALS: BMI 31.8
[2019-01-14 19:31] VITALS: BMI 31.4
[2019-01-14 20:03] LABS: ROM Internal Control Test YES-OK TO RESULT pt. (Internal QC)
[2019-01-14 20:04] LABS: ROM Patient Test POSITIVE (Negative)
[2019-01-14] MEDS: Lactated Ringers 500 ML 999 ML IV ×2 (21:10→22:54)
[2019-01-14 21:18] LABS: Absolute Lymphocyte Count 1.86 X10^3/uL (0.83-4.51); Absolute Neutrophil Count 9.9 X10^3/uL (2.0-7.7); Basophil# 0.04 X10^3/uL; Basophil% 0.3 % (0-1); Eosinophil# 0.21 X10^3/uL; Eosinophils% 1.6 % (0-5); Hematocrit 38.6 % (37-47); Lymphocyte # 1.86 X10^3/ul (4.0); Lymphocyte % 14.3 % (19-41); Mean Corp Hgb Conc 33.7 g/dL (32-36); Mean Corpuscular Volume 92.1 fL (81-99); Mean Platelet Vol. 9.9 fl (6.2-12.0); Monocyte# 0.92 X10^3/uL; Monocyte% 7.1 % (0-10); NRBC Flagged by Analyzer 0 % (0-5); Neutrophil % 76.2 % (47-70); Platelet Count 303 K/mm3 (150-450); RBC Distribution Width CV 12.7 % (11.6-14.6); RBC Distribution Width SD 42.5 fl (35.1-43.9); Red Blood Count 4.19 M/mm3 (4.2-5.4)
[2019-01-14] MEDS: Lactated Ringers 1,000 ML 50 ML IV (21:41)
[2019-01-14] MEDS: fentaNYL-bupivacaine (epidural) 100 ML BAG EPIDURAL (23:03)
[2019-01-15] MEDS: Oxytocin 30 units/NS 500 ml 30 UNITS/500 ML IV.SOLN IV (00:21)
[2019-01-15] MEDS: Lactated Ringers 500 ML 999 ML IV ×2 (00:36→05:35)
[2019-01-15] MEDS: Mag Hydrox/Al Hydrox/Simeth 30 ML UDC PO (01:03)
[2019-01-15] MEDS: Lactated Ringers 1,000 ML 200 ML IV (03:12)
[2019-01-15] MEDS: fentaNYL-bupivacaine (epidural) 100 ML BAG EPIDURAL (05:36)
[2019-01-15] MEDS: Amnioinfusion- 0.9% NS 1,000 ML IV.SOLN. 500 ML INTRA-UTER (06:42)
[2019-01-15] MEDS: 0.9% Saline Lock 10 ML Syringe IV (06:42)
--- NOTE | 2019-01-15 07:29 | HP.PCM_ITS ---
- Problem List (1) SROM (spontaneous rupture of membranes) Status: Acute (2) Kidney stone complicating Status: Acute Qualifiers: Trimester: third trimester Qualified Code(s): O26.833 - related renal disease, third trimester; N20.0 - Calculus of kidney Comment: seeing Dr. Aguilera, keflex daily, and plan ct in hospital after delivery (3) Status: Acute Qualifiers: Weeks of gestation: 38 weeks Qualified Code(s): Z3A.38 - 38 weeks gestation of Comment: declined carrier ntd and genetic testing; Anatomy US normal. (4) Supervision of other normal Status: Acute Comment: PRR PATRICIA 01/23/19 PC Kyra Spouse Ron (5) UTI in Status: Acute Qualifiers: Trimester: second trimester Qualified Code(s): O23.42 - Unspecified infection of urinary tract in , second trimester History Date of Admission: 01/17/19 Final PATRICIA: 01/23/19 Gestational age: 39 Weeks and 1 Days History of this : This is a 33 year-old, at 39 weeks gestational age presents IAL with SROM clear fluid. she denies any vb admits good fm and has had an uncomplicated Surgical History: Surgical History (Last Reviewed 01/15/19 @ 08:56 by Madeline Jacinto) UPJ obstruction, congenital Onset Date: ~10/[address] Palacios- surgeon Allergies No Known Allergies Allergy (Verified 01/14/19 19:32) Home Medications: Home Medications Cephalexin [Keflex] 250 mg PO DAILY 01/14/19 Famotidine 10 mg PO DAILY 01/14/19 Flexeril 10 mg PO PRN PRN 01/14/19 Prenatabs FA 1 tab PO DAILY 01/14/19 Smoking Status: Never smoker Alcohol: None Number of Fetus(es): 1 NST - FHR Rate Baby A Baseline: 140 Variability:: Moderate Accelerations:: 15 x 15 Decelerations:: None NST Reactive:: Yes FHR Category:: Category I Uterine Activity:: q 3-5 History Past Pregnancies: Past Pregnancies previous term uncomplicated Labs: Mom's Labs & Results 01/14/19 01/14/19 01/14/19 19:24 21:05 21:05 WBC 13.0 H RBC 4.19 L Hgb 13.0 Hct 38.6 MCV 92.1 MCH 31.0 MCHC 33.7 RDW Std Deviation 42.5 RDW Coeff of Mg 12.7 Plt Count 303 MPV 9.9 Immature Gran % (Auto) 0.500 Neut % (Auto) 76.2 H Lymph % (Auto) 14.3 L Jessamine % (Auto) 7.1 Eos % (Auto) 1.6 Baso % (Auto) 0.3 Absolute Neuts (auto) 9.9 H Absolute Lymphs (auto) 1.86 Nucleated RBC % 0 Vag Amniotic Fld Detect POSITIVE H Blood Type A POSITIVE Antibody Screen NEGATIVE Course Did the patient receive Yes care? Labs Blood Type: A RH: POSITIVE RPR/VDRL/Syphilis Nonreactive Rubella status Immune HbSAg Negative Date Done: 06/17/18 Chlamydia Negative Gonorrhea Negative HIV/AIDS Non-Reactive Group B Strep: Negative Current Obstetrical History Gestational Diabetes No Incompetent Cervix No Infertility No IUGR No Macrosomia No Hypertension/Pre-eclampsia No Placenta Previa/Abruption No PTL/PROM No Uterine anomaly No Oligohydramnios No Polyhydramnios No Multiple gestation No Past Medical History Asthma No Diabetes No Hypertension No Heart disease No Mitral valve prolapse No Neurologic/Seizure disorder/ No Migraines Kidney disease Yes: UPJ obstruction repair, lt hydronephrosis, lt kidney stone Liver disease No Varicosities No Clotting disorders/Hx of DVT No Thyroid Dysfunction No Other medical diseases No Psychiatric disorders No Major trauma No Abnormal PAP smear No Sleep apnea No Mammogram in the last 2 years No Social History Marital Status: Alleged father [facility] Hx Smoking No Smoking Status Never smoker Expected Delivery Method: Spontaneous Vaginal Review of Systems Constitutional: Denies: Fever, Malaise Eyes: Denies: Blurred vision, Vision Change HEENT: Denies: Head Aches, Visual Changes Cardiovascular: Denies: Chest Pain, Palpitations Respiratory: Denies: Cough, Shortness of Breath, Wheezing Gastrointestinal: Denies: Abdominal Pain, Diarrhea, Nausea, Vomiting Genitourinary: Denies: Dysuria, Hematuria Musculoskeletal: Denies: Joint Pain, Muscle pain Skin: Denies: Lesions, Rash Neurological: Denies: Blurred vision, Focal weakness, Headaches Psychiatric: Denies: Anxiety, Depression Endocrine: Denies: Heat/ Cold Intolerance Hematologic/ Lymphatic: Denies: Easy Bruising, Easy Bleeding Physical Exam General: Alert, Oriented x3 HEENT: Atraumatic, Normocephalic. Negative for: Thyromegaly, Lymphadenopathy Cardiovascular: Regular rate Lungs: Normal air movement Abdomen: Soft, Non Tender Neurological: Deep Tendon Reflexes 2+/4 and Symmetrical, Neuro grossly intact. Negative for: Clonus GALLERY HOST: Normal external genitalia Estimated gestational size: Appropriate for gestational size Presentation: Cephalic Cervix Dilation (cm): 3 Assessment/Plan All Active Problems (Last Reviewed 01/13/19 @ 15:33 by Danni Lopes) SROM (spontaneous rupture of membranes) (Acute) Kidney stone complicating (Acute) UTI in (Acute) (Acute) Supervision of other normal (Acute) This is a 33 year-old, at 39 weeks gestational age presents IAL. admits srom clear fluid, epi PRN gbs neg
[2019-01-15] MEDS: Oxytocin 30 units/NS 500 ml 30 UNITS/500 ML IV.SOLN 334 UNITS IV (07:47)
[2019-01-15] MEDS: Naproxen 250 MG Tablet 500 MG PO ×2 (09:16→16:50)
[2019-01-15 12:17] VITALS: BP 142/63; PULSE 84; RESP 16; TEMP 36.4
[2019-01-15 15:53] VITALS: BP 112/60; PULSE 105; RESP 16; TEMP 37.2
[2019-01-15 19:57] VITALS: BP 115/43; PULSE 103; RESP 16; TEMP 36.8; O2SAT 96
[2019-01-16 00:31] VITALS: BP 123/68; PULSE 89; RESP 16; TEMP 36.5
[2019-01-16 04:32] VITALS: BP 124/67; PULSE 84; RESP 18; TEMP 36.6
--- NOTE | 2019-01-16 07:52 | PCM.PN.OB ---
Subjective: doing well no complaints pain controlled no CP SOB N V ambulating well tolerating po lochia moderate, going well - Physical Exam Vitals/I&O's: Vital Signs Temp Pulse Resp BP Pulse Ox 97.9 F 84 18 124/67 H 96 01/16/19 04:32 01/16/19 04:32 01/16/19 04:32 01/16/19 04:32 01/15/19 19:57 Oxygen Delivery Method Room Air Weight: 166 lb 9.6 oz Body Mass Index (BMI) 31.4 Intake and Output for Last 24 Hours 01/14/19 01/15/19 01/16/19 23:59 23:59 23:59 Intake Total 1060.83 / 1060.83 3630.01 / 3630.01 Output Total 2700 / 2700 Balance 1060.83 / 1060.83 930.01 / 930.01 General: Oriented x3 Abdomen: Soft, Non Tender, Non-Distended, - - FF below U Current Medications Acetaminophen (Tylenol) 1,000 mg PO Q8H PRN PRN PRN Reason: Pain Score 1-3/10 Bisacodyl (Dulcolax) 10 mg RECTAL UD PRN PRN Reason: If no BM Cephalexin (Keflex) 250 mg PO DAILY LITTLE Dibucaine (Dibucaine) 1 applic TOPICAL TID PRN PRN; Protocol PRN Reason: Discomfort Hydrocortisone (Hytone) 1 applic TOPICAL TID PRN PRN; Protocol PRN Reason: Discomfort Methylergonovine Maleate (Methergine) 0.2 mg IM X1 PRN PRN Reason: Excess bleeding/uterine atony Naproxen (Naprosyn) 500 mg PO Q8H PRN PRN PRN Reason: Pain Score 1-3/10 Last Admin: 01/15/19 16:50 Dose: 500 mg Documented by: Ondansetron HCl (Zofran) 4 mg IV Q4H PRN PRN PRN Reason: Nausea Oxycodone HCl (Oxyir) 5 - 10 mg PO Q4H PRN PRN PRN Reason: Pain Score 4-10/10 Senna/Docusate Sodium (Senokot-S, Clare-Colace) 1 - 2 tablet PO DAILY PRN PRN PRN Reason: Constipation Simethicone (Mylicon) 80 mg PO PCHS PRN PRN Reason: Indigestion/Stomach pain Sodium Chloride () 5 - 15 ml IV UD PRN PRN Reason: SALINE FLUSH Medical Necessity - Tobacco Use Smoking Status: Never smoker Assessment/Plan All Active Problems (Last Reviewed 01/13/19 @ 15:33 by Danni Lopes) Kidney stone complicating (Acute) UTI in (Acute) (Acute) Supervision of other normal (Acute) s/p PPD # 1; history of kidney stone 1. routine post delivery care 2. breast feeding- support given 3. rh positive 4. rubella immune 5. CT today [address]
--- NOTE | 2019-01-16 07:54 | DCINST_ITS ---
Additional Instructions: If you experience any of the following, contact your healthcare provider. * Bleeding that soaks a pad every hour for 2 hours * Fever 100.4 or higher * Unrelieved incision or abdominal pain * Swelling, redness, discharge or bleeding from your incision or episiotomy site * Your incision begins to separate * Problems urinating (including inability to urinate or burning while urinating). * Visual changes * Severe headache * Flu-like symptoms * Pain or redness in one of both of your breasts * Pain, warmth, tenderness or swelling in your legs, especially the calf area * Frequent nausea and vomiting * Symptoms of depression or anxiety If you experience any of the following, call 911 or go to the nearest Emergency Room. * Chest pain * Problems breathing * Seizure activity * Partial or complete paralysis of a body part, slurred speech, weakness or drooping of the face, or a sudden inability to walk or hold your balance Allergies/Adverse Reactions: Allergies No Known Allergies Allergy (Verified 01/14/19 19:32) Medications to take at Discharge Cephalexin [Keflex] 250 mg PO DAILY 01/14/19 Famotidine 10 mg PO DAILY 01/14/19 Flexeril 10 mg PO PRN PRN 01/14/19 Prenatabs FA 1 tab PO DAILY 01/14/19 Primary Care Physician: Franca Flores MD [Primary Care Provider] - Test Results: Test results from this visit will be discussed in further detail at your follow- up appointment, if applicable.
--- NOTE | 2019-01-16 07:54 | PCM.DCVAG ---
Additional Instructions: If you experience any of the following, contact your healthcare provider. Bleeding that soaks a pad every hour for 2 hours Fever 100.4 or higher Unrelieved incision or abdominal pain Swelling, redness, discharge or bleeding from your incision or episiotomy site Your incision begins to separate Problems urinating (including inability to urinate or burning while urinating). Visual changes Severe headache Flu-like symptoms Pain or redness in one of both of your breasts Pain, warmth, tenderness or swelling in your legs, especially the calf area Frequent nausea and vomiting Symptoms of depression or anxiety If you experience any of the following, call 911 or go to the nearest Emergency Room. Chest pain Problems breathing Seizure activity Partial or complete paralysis of a body part, slurred speech, weakness or drooping of the face, or a sudden inability to walk or hold your balance Allergies/Adverse Reactions: Allergies No Known Allergies Allergy (Verified 01/14/19 19:32) Medications to take at Discharge Cephalexin [Keflex] 250 mg PO DAILY 01/14/19 Famotidine 10 mg PO DAILY 01/14/19 Flexeril 10 mg PO PRN PRN 01/14/19 Prenatabs FA 1 tab PO DAILY 01/14/19 Primary Care Physician: Franca Flores MD [Primary Care Provider] - Test Results: Test results from this visit will be discussed in further detail at your follow-up appointment, if applicable.
[2019-01-16 08:12] VITALS: BP 115/64; PULSE 81; RESP 16; TEMP 36.5; O2SAT 96
[2019-01-16] MEDS: Naproxen 250 MG Tablet 500 MG PO (12:06)
[2019-01-16] MEDS: Cephalexin 250 MG Capsule PO (12:07)
[2019-01-16 12:09] VITALS: BP 116/69; PULSE 94; RESP 16; TEMP 36.9; O2SAT 96
--- NOTE | 2019-01-16 12:17 | CT_ITS ---
STUDY: CT ABDOMEN AND PELVIS WITHOUT CONTRAST REASON FOR EXAM: Female, 33 years old. UTI and hematuria. Recent vaginal delivery. RADIATION DOSAGE (If Supplied By Facility): CTDIvol = ( 10.34 ) mGy, DLP = ( 473.48 ) mGycm TECHNIQUE: Transaxial images were obtained from the dome of the diaphragm to the symphysis pubis without oral contrast, and without intravenous contrast. Sagittal and coronal images were reconstructed. Individualized dose optimization techniques were used for this CT. COMPARISON: None. FINDINGS: The visualized lung bases are unremarkable. The visualized portions of the heart are within normal limits. Normal liver. Normal gallbladder and extrahepatic biliary system. Normal spleen. Normal pancreas. Normal bilateral adrenal glands. Normal right kidney. The staghorn calculus is seen in the mid and lower poles of the left kidney. The largest stone measures 1.7 cm. 2 mm, is in the posterior mid pole calyx of the left kidney. Mild degree of left hydronephrosis. I suspect a 2.5 mm calculus at the left ureterovesical junction. Normal visualized stomach. Normal small intestine. Normal colon. The appendix is visualized and appears normal. Normal abdominal aorta. Normal inferior vena cava. Normal retroperitoneum. Normal urinary bladder. The uterus is enlarged. This is in keeping with the recent vaginal delivery. Normal abdominal wall. Normal osseous structures. CT/Abdomen/Pelvis without Cont IMPRESSION: I suspect a 2.5 mm calculus at the left ureterovesical junction. Mild left hydronephrosis with staghorn calculus in the lower pole calyx. enlarged uterus. Electronically Signed: Doyle Harrington, at 13:18 EST , Service support ,
--- NOTE | 2019-01-16 14:25 | CASEMGMT ---
Social Work Brief Assessment - Labor and Delivery Unit [place] [place] [address] Phone number: [phone] Date of Referral/Notification: 01.16.2019 Time of Referral: 805 Referred By: Dr. Rodriguez Reason for Referral: maternal history of depression Date of Intervention: 01.16.2019 Time of Intervention: 1425 Informant: Medical record, mother of baby (MOB) Kayla Carbajal, and father of baby (FOB) Ron Carbajal. History: MOB is a 33 year old female, marred to FOB who is the father to both of MOB?s children. MOB is G2, P1 to 2 after delivering Sanjuanaen Fredrick Carbajal on 01.15.2019. Older child at home is Kyra Carbajal, born on 12.02.2015. MOB works at [employer] but previously worked as a [employer]. FOB works on sales at a company in [place]. MOB reportedly had some form of baby blues or depression after of Kyra which lasted for a short time and surfaced a couple of months . MOB reports did not really notice a change, but FOB interjects that he and other family members noticed BERNIE was not quite her normal self so this is where the concern for depression has arisen. No history of medication or counseling. No reports of any family history of mental health history for MOB or FOB. NO reports of any substance use history for either parent. MOB denied any form of abuse or safety concerns upon admission to labor and delivery. Assessment: Met with MOB and FOB together. MOB and FOB both provided input during conversation. MOB?s affect constricted but MOB also with concern about UTI or kidney stones so not feeling as well as normally does. MOB and FOB both cooperative and listed to education on depression, risk factors, and resources available. Encouraged MOB voicing to support system should MOB start to recognize changes in mood or anxiety. Normalized that this is common and treatable should this arise. Introduced that father?s can also develop mood and anxiety issues, so also important to address if arise in the father. MOB and FOB accepted resources offered this date. MOB reports to have needed supplies to care for baby at home, reports to have good support as well. FOB is taking some time off of work and then MOB?s mother is taking time off to help. MOB and FOB report that breast feeding is going much better this time around, which parent see has helpful. MOB also reports to feel more prepares as to what to expect in caring for a so another positive factor this time around. No concerns voiced by nursing about mother/child interactions or bonding. Plan: MOB and baby to home today. depression packet provided, included online, local, reading resources. No further needs requested or indicated. -HELEN Deutsch, PRICER BAGGER
[2019-01-16 16:00] VITALS: BP 116/69; PULSE 72; RESP 16; TEMP 36.8
--- NOTE | 2019-01-16 16:07 | NURSING ---
CT results noted and office made aware results are in the chart. discharge instr reviewed with the pt.
--- NOTE | 2019-01-17 03:44 | PCM.OPRPT ---
Problem List (1) SROM (spontaneous rupture of membranes) Status: Acute (2) Kidney stone complicating Status: Acute Qualifiers: Trimester: third trimester Qualified Code(s): O26.833 - related renal disease, third trimester; N20.0 - Calculus of kidney Comment: seeing hui Luna daily, and plan ct in hospital after delivery (3) Status: Acute Qualifiers: Weeks of gestation: 38 weeks Qualified Code(s): Z3A.38 - 38 weeks gestation of Comment: declined carrier ntd and genetic testing; Anatomy US normal. (4) Supervision of other normal Status: Acute Comment: PRR PATRICIA 01/23/19 PC Kyra Spouse Ron (5) UTI in Status: Acute Qualifiers: Trimester: second trimester Qualified Code(s): O23.42 - Unspecified infection of urinary tract in , second trimester Vaginal Delivery Maternal Presentation: Spontaneous Rupture of Membranes ial 38 weeks Method of Induction: Pitocin Amniotic Membrane Rupture Type: Spontaneous at home Amniotic Fluid Description: Clear Final PATRICIA: 01/23/19 Gestational age: 39 Weeks and 1 Days Date of Procedure: 01/15/19 Pre-Operative Diagnosis: srom Post-Operative Diagnosis: same Surgery/ Procedure Performed: Spontaneous Vaginal Delivery Type of Anesthesia: Epidural Description of Procedure: delivered uncomplicated short cord noted, delayed cord clamping Placental Delivery Description: Spontaneous Placenta Disposition: [facility] Cord Vessel Description: 3 Vessels Cord Entanglement: None Infant A gender: Male Episiotomy Description: None Laceration: None Medications given after delivery: IV Pitocin Complications: None Multi Select Codes - Urinary/Genital Urinary/Genital CPT Codes: 91498 Vaginal Delivery [facility]
== END 2019-01-16 15:00 | disposition home or self-care (01) | DRG 807 ==
LOC: WPOUT 20:08
PROVIDERS: Admitting Provider Obstetrics & Gynecology; Family Provider Family Medicine; PCP Family Medicine; Referring Provider Obstetrics & Gynecology; Visit Provider Obstetrics & Gynecology
DX: O99.89 Other specified diseases and conditions complicating pregnancy, childbirth and the puerperium (principal); N20.0 Calculus of kidney; O69.3XX0 Labor and delivery complicated by short cord, not applicable or unspecified; Z3A.38 38 weeks gestation of pregnancy; Z37.0 Single live birth
CPT/HCPCS: 59050; 74176; 84112; 85025; 86850; 86900; 86901; 99218; J7030; J7120; A4216; G0378

== ENCOUNTER 2019-03-05 17:30 | Outpatient (RCR) | payer BC, SELFPAY ==
[2019-01-16 10:22] VITALS: BMI 31.4
--- NOTE | 2019-02-07 16:36 | HP.PTEVAL_ITS ---
Patient's Visit Information JOSIE SÁNCHEZ is a 33 year old F referred to Physical Therapy by Amber Fulton MD with a diagnosis of PLVIC AND PERINEAL PAIN. Date of Evaluation: 02/07/19 Physical Therapist: Madi Armas PT, Cert MDT, OCS - Visit Plan Frequency: 2x /Week Duration: 4 Weeks Plan: PT INTERVENTIONS GRADED DLS,POSTURAL EX'S LE STRENGTH SI/PELVIS PAIN PUBIC SYMPHYSIS - Subjective Findings: This 33 y/o female presents to physical therapy pelvic and perineal pain. Patient had SI pain during pregnacy patient had SI joint pain ,then after developed pubic symphysis . Patient had normal delivery on Jan 15 6 days early . Patient kidney stone which Feb 21. Patient post 3 weeks delivery. Agravating factors laying on side , tuning in bed felt a pop pubic sypmphysis,heavy lifting . Patient is breast feeding. Patient has no alleviating factors only can take ibuprofrin.Patient had SI joint ater 1st pregancey required adjustments Denies parathesia/tingling. Patient pain pubic region with function ,ADL'S and job demnads. RTW April 13. Patient condtion affects QOL. SOCIAL: . VOCATION: [employer] - Pain Bilateral Hip Pain Intensity (Out of 10): 8 Pain Intensity Range: 10 Comment: pubic syphysis - Objective POSTURE: mild foward posture. GAIT: reciprocal pattern. PALAPTION: unremarkable. NEURO: intact. SYMMTRIES : align. MMT: quads/hams 4/5,hip flexion 4-/5,abd 3+/5 pain. PROM: BLE WFL pain ER/IR. MUSCULAR ENDURANCE: unable to assess due to pain - Special Tests L/S Slump test left side: Negative L/S Slump test right side: Negative L/S Left Straight Leg Raise: Negative L/S Right Straight Leg Raise: Negative - Goals Goal 1:: Independant with HEP. Goal Time Frame: 4-6 Weeks Goal 2:: Improve posture for ADLS Goal Time Frame: 4-6 Weeks Goal 3:: Decrease pubic symphysis pain by 60% or > to improve QOL. Goal 4:: Patient to improve daily function and job demands with min limiations with symptoms. Goal Time Frame: 4-6 Weeks Goal 5:: Patient to improve back owestry sore by 5 points or > to improve function. Goal Time Frame: 4-6 Weeks - Rehabilitation Potential Physical Therapy Diagnosis: Patient developed pubic symphysis pain with popping and SI joint pain but after delivery had. had pubic symphysis pain with popping ,with weak core and pain occurs with functional activities ,thus is d/c. Rehabilitation Potential: Good - Anticipated Interventions Patient/Client Instruction: Educate patient on: Condition, Plan of Care For the Purpose of:: To decrease pain, To increase ROM, To improve muscle performance and motor function, To improve ability to perform ADL's, To increase tolerance to activity/condition/position, To improve ability of physical actions for home/community/work/leisure, To improve health of tissue, To decrease soft tissue restriction, To increase flexibility/ROM, To improve ability to perform tasks related to life management Therapeutic Exercise to Include: Strength training, Body mechanics, Postural training, Active ROM, Dynamic Lumbar Stabilization For the Purpose of:: To decrease pain, To increase ROM, To improve muscle performance and motor function, To improve ability to perform ADL's, To increase tolerance to activity/condition/position, To improve performance and independence with ADL's, To improve ability of physical actions for home/community/work/leisure, To improve health of tissue, To decrease soft tissue restriction, To improve ability to perform tasks related to life management Thank you for the opportunity to evaluate your patient. For Medicare and Medicare HMO plans, please review the plan of care and approve it. It will need to be FAXED BACK to us at [phone] for Medicare purposes. For Medicare only, by signing this I certify the plan of care. Please let me know if there are questions or concerns regarding this plan of care. Physician Signature: Dat e:
--- NOTE | 2019-05-09 08:05 | HP.PT.NRP ---
JOSIE SÁNCHEZ was seen in my office for initial evaluation on 02/07/19. The following Plan of Care was established for this patient: Initial Frequency: 2x /Week Initial Duration: 4 Weeks Patient/Client Instruction: Educate patient on: Condition, Plan of Care For the Purpose of:: To decrease pain, To increase ROM, To improve muscle performance and motor function, To improve ability to perform ADL's, To increase tolerance to activity/condition/position, To improve ability of physical actions for home/community/work/leisure, To improve health of tissue, To decrease soft tissue restriction, To increase flexibility/ROM, To improve ability to perform tasks related to life management Therapeutic Exercise to Include: Strength training, Body mechanics, Postural training, Active ROM, Dynamic Lumbar Stabilization For the Purpose of:: To decrease pain, To increase ROM, To improve muscle performance and motor function, To improve ability to perform ADL's, To increase tolerance to activity/condition/position, To improve performance and independence with ADL's, To improve ability of physical actions for home/community/work/leisure, To improve health of tissue, To decrease soft tissue restriction, To improve ability to perform tasks related to life management This patient was last seen in our office 03/05/18. Pertinent comments regarding their Physical therapy will appear below: Patient seen for PT for sacral pain and peronial pain doing well with ex's thus is d/c. At this point I will be discontinuing this patient from physical therapy. I would be happy to see this patient again in the future if found appropriate by the physician. Thank you! Madi Armas, PT, Cert MDT, OCS
== END 2019-03-05 19:00 | disposition home or self-care (01) ==
LOC: PT 17:30
PROVIDERS: Family Provider Family Medicine; PCP Family Medicine; Referring Provider Obstetrics & Gynecology; Visit Provider Obstetrics & Gynecology
DX: R10.2 Pelvic and perineal pain (principal)
CPT/HCPCS: 97110; 97162

== ENCOUNTER → 2019-03-10 | Outpatient (CLI) | payer BC, SELFPAY ==
[2019-02-27 10:06] VITALS: BMI 31.4
[2019-03-10 11:50] LABS: 24Hr.Lytes Total Volume 925 mL; Sodium 24 HR UR 124 mmol/24h (40-220); Urine Potassium 56.9 mmol/L (Not Establ.); Urine Potassium/ 24 Hours 52.6 mmol/24h (25-125); Urine Sodium 134 mmol/L (Not Establ.)
[2019-03-10 11:56] LABS: (24 HR) Urine Calcium 132.3 mg/24 HR (42.0-353.0); 24HR UR TOTAL VOLUME 925 ml; 24HR. Urine Creatinine 1.29 g/24 HR (0.70-1.90); Calcium Urine pH Range 1; Urine Calcium (Random) 14.3 (Not Estab.)
[2019-03-11 05:06] LABS: Uric Acid, Ur 36.7 mg/dL (Not Estab.)
[2019-03-11 09:10] LABS: Uric Acid, 24Ur 339.5 mg/24 hr (173.7-902.1)
== END | disposition home or self-care (01) ==
LOC: LABSPEC 11:09
PROVIDERS: PCP Family Medicine
DX: N20.0 Calculus of kidney (principal)
CPT/HCPCS: 81050; 82340; 82570; 84133; 84300; 84560

== ENCOUNTER 2019-03-11 07:55 | Emergency (ER) | payer BC, SELFPAY ==
[2019-02-27 10:06] VITALS: BMI 31.4
[2019-03-11 07:56] VITALS: BP 129/104; PULSE 115; RESP 18; TEMP 36.6; O2SAT 98; BMI 24.5
--- NOTE | 2019-03-11 08:30 | CT_ITS ---
STUDY: CT ABDOMEN AND PELVIS WITHOUT CONTRAST REASON FOR EXAM: Female, 33 years old. LEFT NEPH TUBE PLACED 01/21/19--REMOVED SAME DAY -- INCISION and quot; OPEN and quot; W/ DRAINAGE RADIATION DOSAGE (If Supplied By Facility): CTDIvol = ( 6.10 ) mGy, DLP = ( 274.33 ) mGycm TECHNIQUE: Transaxial images were obtained from the dome of the diaphragm to the symphysis pubis without oral contrast, and without intravenous contrast. Sagittal and coronal images were reconstructed. Individualized dose optimization techniques were used for this CT. COMPARISON: Comparison is made with prior examination dated October 17, 2018. FINDINGS: The visualized lung bases are unremarkable. The visualized portions of the heart are within normal limits. Normal liver. Normal gallbladder and extrahepatic biliary system. Normal spleen. Normal pancreas. Normal bilateral adrenal glands. Normal right kidney. There are multiple nonobstructive left intrarenal calculi. The largest is in the posterior midpole calyx and measures 6.2 mm. There is also evidence of a 5 mm calculus in the lower pole calyx of the left kidney. Moderate degree of the left hydronephrosis and proximal left hydroureter. Normal visualized stomach. Normal small intestine. Normal colon. The appendix is visualized and appears normal. Normal abdominal aorta. Normal inferior vena cava. Normal retroperitoneum. Normal urinary bladder. IUD is seen within the uterus. Normal abdominal wall. Normal osseous structures. CT/Abdomen/Pelvis without Cont IMPRESSION: Left intrarenal calculi with moderate degree of left hydronephrosis and proximal left hydroureter. Electronically Signed: Doyle Harrington, at 9:35 EST , Service support ,
--- NOTE | 2019-03-11 08:31 | ED.DCSUM_ITS ---
History of Present Illness Chief Complaint: Wound Check Informant: Patient Narrative: Patient presents with fast heart rate. She recently had nephrostomy tubes which were released as well as a stent for obstructive kidney stones, these were all removed, she has no fever or chills, she has not noticed any dysuria or hematuria but she noticed an increased heart rate and wants to make sure her wound is okay. She has no abdominal pain she did have some discharge from her left nephrostomy area. She has no cough congestion, no headache or upper respiratory symptoms she has no myalgias. Past Medical History - Allergies and Home Meds Allergies/Adverse Reactions: Allergies tamsulosin [From Flomax] Adverse Reaction (Verified 03/11/19 07:59) Other Primary Care Physician: Franca Flores MD [Primary Care Provider] - Past Medical History: - - Complicated kidney stone history with nephrostomy tubes. Otherwise she is 6 weeks. Smoking Status: Never smoker Review of Systems All systems negative except as indicated General: Denies: Chills, Fever ENT: Reports: - - Negative Cardiovascular: Reports: Palpitations, Heart racing. Denies: Chest pain Respiratory: Denies: Dyspnea, Cough, Sputum Gastrointestinal: Denies: Abdominal pain, Nausea, Vomiting, Diarrhea Genitourinary: Denies: Dysuria Musculoskeletal: Reports: Back pain. Denies: Myalgias, Arthralgias Skin: Reports: Wounds Neurological: Denies: Weakness Psych: Denies: Anxiety Endocrine: Denies: Polydipsia Hematologic: Denies: Easy bruising, Easy bleeding Allergy: Denies: Uticaria Physical Exam Vital Signs/Narrative: Vital Signs Temp Pulse Resp BP Pulse Ox 03/11/19 07:56 98 F 115 H 18 129/104 H 98 Inital Vital Signs reviewed: Yes General: Well nourished, - - Patient appears well, she is not febrile, she does not appear toxic. Head: Normocephalic, Atraumatic Eyes: Perrl ENT: Moist mucous membranes Neck: Supple Cardiovascular: Regular rate, Regular rhythm Respiratory: No distress, CTA bilaterally, Chest nontender Abdomen: Soft, Nontender, Nondistended Rectal: Deferred Back: - - She has bilateral nephrostomy incisions, the right nephrostomy is intact, the left has a very slight dehiscence, there is pink granulation tissue without any signs of cellulitis or discharge. Extremities: Nontender, No edema Skin: - - Wounds as above Neurological: Alert, Normal Strength, Normal Sensation Psychological: Normal affect Diagnostic/Tx/Re-eval - Medical Decision Making Patient has a normal blood work-up, she does not have any urinary tract infection, she is found to have a renal calculus, as well as slight obstruction with this. I told the patient this is likely to pass and she needs to see her urologist again. Her urologist is in [place] due to her complex history. If she has fever or chills, weakness or any worsening symptoms she needs to return right away she understands this since she has gone through this in the past. Otherwise she will be discharged with analgesia. ED Disposition - Plan for ED Patient: Disposition: Home or Assisted Living Diagnosis: Kidney stone Prescriptions: Oxycodone HCl/Acetaminophen [Percocet 5/325] 1 tab PO Q4H PRN PRN 3 Days #12 tab PRN Reason: Pain Prescription Printed Referrals: Franca Flores MD [Primary Care Provider] - 3-5 Days Additional Instructions: Follow-up with your urologist in 1 to 2 days. If you have fever chills or worsening symptoms return to the emergency department right away
[2019-03-11 08:54] LABS: Absolute Lymphocyte Count 1.89 X10^3/uL (0.83-4.51); Absolute Neutrophil Count 8.6 X10^3/uL (2.0-7.7); Basophil# 0.05 X10^3/uL; Basophil% 0.4 % (0-1); Eosinophil# 0.14 X10^3/uL; Eosinophils% 1.2 % (0-5); Hematocrit 44.3 % (37-47); Hemoglobin 14.1 g/dL (12.0-15.0); Lymphocyte # 1.89 X10^3/ul (4.0); Lymphocyte % 16.6 % (19-41); Mean Corp Hgb Conc 31.8 g/dL (32-36); Mean Corpuscular Hgb 29.7 pg (27.0-32.0); Mean Corpuscular Volume 93.3 fL (81-99); Mean Platelet Vol. 8.9 fl (6.2-12.0); Monocyte# 0.62 X10^3/uL; Monocyte% 5.5 % (0-10); NRBC Flagged by Analyzer 0 % (0-5); Neutrophil # 8.61 X10^3/uL (2.7-7.7); Neutrophil % 75.9 % (47-70); Platelet Count 478 K/mm3 (150-450); RBC Distribution Width CV 12.5 % (11.6-14.6); RBC Distribution Width SD 43.1 fl (35.1-43.9); Red Blood Count 4.75 M/mm3 (4.2-5.4); White Blood Count 11.4 K/mm3 (4.4-11.0)
[2019-03-11] MEDS: 0.9% Normal Saline 1,000 ML 1000 ML IV (08:59)
[2019-03-11 09:09] LABS: ALB/GLOB Ratio 1.2 RATIO (0.9-2.4); AST(SGOT) 36 U/L (15-37); Alanine Aminotransfer ALT/SGPT 59 U/L (13-56); Albumin, Serum 4.2 g/dL (3.2-5.0); Alkaline Phosphatase 65 U/L (45-117); Anion Gap 13 (5-15); BUN 27 mg/dL (7-18); BUN/Creat Ratio 32.3 RATIO (10-20); Calcium,Total 9.4 mg/dL (8.5-10.1); Chloride 107 mmol/L (98-107); Creatinine, Serum 0.84 mg/dL (0.55-1.02); EST Glomerular Filtration Rate 84 mL/min (>60); Est Glom Filt Rate - Afr Amer 102 mL/min (>60); Estimated Creatinine Clearance 73.23 ml/min; Globulin 3.5 g/dL (2.2-4.2); Glucose 52 mg/dL (74-106); Protein, Total 7.7 g/dL (6.4-8.2); Sodium Level 139 mmol/L (136-145)
[2019-03-11 10:22] LABS: Bacteria 0 SEEN /hpf (None Seen); Mucous, Urine 0 SEEN /hpf (<or=2+)
[2019-03-11 10:23] LABS: Color, Urine Yellow (Yellow); Glucose, Dipstick Normal (Normal); Leukocyte Esterase-Dipstick 25 /ul (Negative); Nitrite-Dipstick Negative (Negative); Occult Blood-Urine 25 /ul (Negative); Protein-Dipstick Negative (Negative); Urine Bilirubin Dipstick Negative (Negative); Urine Clarity Sl. Cloudy (Clear); Urine Urobilinogen Normal (Normal)
[2019-03-11 10:32] LABS: Ketone-Dipstick 150 mg/dl (Negative)
[2019-03-11 10:39] LABS: Red Blood Cells-Urine 0-5 SEEN /hpf (0-5); White Blood Cells 0-5 SEEN /hpf (0-5)
[2019-03-11 10:47] LABS: Squamous Epithelial Cells - UA 0-5 SEEN /hpf (5-10)
[2019-03-11 11:30] VITALS: BP 99/59; PULSE 107; RESP 16; O2SAT 97
== END 2019-03-11 11:32 | disposition home or self-care (01) ==
PROVIDERS: Emergency Provider Emergency Medicine; PCP Family Medicine
DX: N13.2 Hydronephrosis with renal and ureteral calculous obstruction (principal); Z87.442 Personal history of urinary calculi; Z93.6 Other artificial openings of urinary tract status
CPT/HCPCS: 74176; 80053; 81001; 85025; 87040; 96360; 99283; J7030; A4216

== ENCOUNTER → 2019-03-11 | Outpatient (CLI) | payer BC, SELFPAY ==
[2019-02-27 10:06] VITALS: BMI 31.4
[2019-03-11 07:56] VITALS: BMI 24.5
== END | disposition home or self-care (01) ==
PROVIDERS: PCP Family Medicine
DX: N20.0 Calculus of kidney (principal)
CPT/HCPCS: 81050

== ENCOUNTER → 2019-03-17 16:36 | Outpatient (CLI) | payer BC, SELFPAY ==
[2019-02-27 10:06] VITALS: BMI 31.4
[2019-03-11 07:56] VITALS: BMI 24.5
--- NOTE | 2019-03-17 16:38 | US_ITS ---
STUDY: RENAL ULTRASOUND - COMPLETE REASON FOR EXAM: Female, 33 years old. HX STONES -- 2.5 CM STONE REMOVED FROM LT KID 2019 TECHNIQUE: Ultrasound evaluation of the kidneys was performed with real-time and static sesay-scale imaging. COMPARISON: Bilateral renal ultrasound November 29, 2018; CT abdomen and pelvis January 16, 2019 and March 11, 2019. FINDINGS: RIGHT KIDNEY: Normal location of the right kidney, which is normal in size. The right kidney measures 10.1 x 6.0 x 4.5 cm. There is a normal cortex of the right kidney. The renal cortex measures 1.2 cm. There is no right renal mass or cyst. There are no right renal calculi. There is no right hydronephrosis. DISTAL RIGHT URETER: There is non-visualization of the distal right ureter. There is no demonstrated right ureterovesical junction calculus. There is no demonstrated right ureteral jet. LEFT KIDNEY: Normal location of the left kidney, which is normal in size. The left kidney measures 11.3 x 4.3 x 6.2 cm. There is a normal cortex of the left kidney. The renal cortex measures 1.4 cm. 5 x 4 x 3 mm hyperechoic possible stone with posterior acoustic shadowing seen at the midpole, and there is a 7 x 3 x 3 mm possible second stone at the lower pole. There is a mildly distended left renal pelvis as well as calyceal dilatation ranging from mild to moderately severe. This is most prominent at the upper pole, where the dilated calyx measures 3.4 x 1.6 x 2.3 cm. Communication of this calyx to the renal pelvis is indistinct. DISTAL LEFT URETER: There is non-visualization of the distal left ureter. There is no demonstrated left ureterovesical junction calculus. There is no demonstrated left ureteral jet. BLADDER: The non-distended urinary bladder has a volume of 6.87 ml. There is a grossly normal 5.2 mm wall thickness of the distended urinary bladder. There is no overt mass within the urinary bladder. There are no demonstrated bladder calculi. US/Kidney and Bladder IMPRESSION: 1. Left nephrolithiasis again identified. The large central stone identified on prior ultrasound is no longer present, however. There is stable ectasia of the left pelvicalyceal system, most prominent at the upper pole. 2. Unremarkable right kidney. 3. Urinary bladder is nondistended, limiting evaluation. Electronically Signed: Manoj Cabrera MD at 19:57 EST , Service support ,
== END ==
LOC: US 16:37
PROVIDERS: PCP Family Medicine
DX: N20.0 Calculus of kidney (principal)
CPT/HCPCS: 76770

== ENCOUNTER → 2019-04-10 13:33 | Outpatient (CLI) | payer BC, SELFPAY ==
[2019-04-09 09:50] VITALS: BMI 24.0
--- NOTE | 2019-04-10 13:33 | US_ITS ---
PROCEDURE: ULTRASOUND OF THE FEMALE PELVIS - COMPLETE REASON FOR EXAM: Female, 33 years old. IUDSIUD PlacementSUS - Pelvic, Tvag TECHNIQUE: Transabdominal and Transvaginal TECHNICAL QUALITY: Adequate. COMPARISON: CT of abdomen and pelvis dated March 11, 2019 FINDINGS: Reidentification of IUD in the fundal portion of the endometrial cavity see image 64/93. The uterus is retroverted and is in a midline position. The uterus measures 6.3 x 5.5 x 3.2 cm. There is no demonstrated myometrial mass. The endometrium measures 5 mm in thickness, and is hyperechoic. There is no demonstrated endometrial mass. Normal uterine cervix. The right ovary is visualized. The right ovary measures 2.7 x 1.9 x 1.4 cm. There is no right ovarian cyst or ovarian mass. There is no visualized right adnexal mass or complex lesion. The left ovary is visualized. The left ovary measures 2.3 x 1.9 x 1.2 cm. There is no left ovarian cyst or ovarian mass. There is no visualized left adnexal mass or complex lesion. Normal color vascular flow and Doppler signal is demonstrated in both ovaries. There is no fluid in the cul-de-sac. US/Transvaginal Non- IMPRESSION: Reidentification of IUD in the fundal portion of the endometrial cavity see image 64/93. This was also seen on the CT of abdomen and pelvis dated March 11, 2019. Electronically Signed: Jeff Garcia MD at 15:38 EST , Service support ,
== END ==
PROVIDERS: PCP Family Medicine; Referring Provider Nurse Practitioner Women's Health; Visit Provider Nurse Practitioner Women's Health
DX: Z97.5 Presence of (intrauterine) contraceptive device (principal)
CPT/HCPCS: 76830

== ENCOUNTER → 2019-05-26 | Outpatient (CLI) | payer BC, SELFPAY ==
[2019-04-09 10:03] VITALS: BMI 24.5
== END | disposition home or self-care (01) ==
LOC: LAB 16:13 → LABSPEC 16:14
PROVIDERS: PCP Family Medicine
DX: N20.0 Calculus of kidney (principal)
CPT/HCPCS: 82360

== ENCOUNTER → 2019-06-17 08:28 | Outpatient (CLI) | payer BC, SELFPAY ==
[2019-04-09 10:03] VITALS: BMI 24.5
--- NOTE | 2019-06-17 08:33 | CT_ITS ---
STUDY: CT ABDOMEN AND PELVIS WITHOUT CONTRAST REASON FOR EXAM: Female, 34 years old. LEFT RENAL STONE RADIATION DOSAGE (If Supplied By Facility): CTDIvol = ( 6.06 ) mGy, DLP = ( 278.58 ) mGycm TECHNIQUE: Transaxial images were obtained from the dome of the diaphragm to the symphysis pubis without oral contrast, and without intravenous contrast. Sagittal and coronal images were reconstructed. Individualized dose optimization techniques were used for this CT. COMPARISON: Comparison is made with prior examination dated March 11, 2019. FINDINGS: The visualized lung bases are unremarkable. The visualized portions of the heart are within normal limits. Normal liver. Normal gallbladder and extrahepatic biliary system. Normal spleen. Normal pancreas. Normal bilateral adrenal glands. Normal right kidney. 2 tiny calculi are seen in the lower pole calyces of the left kidney. These are markedly reduced in size as compared to prior study. Mild residual left hydronephrosis Normal visualized stomach. Normal small intestine. Large amount of fecal material is seen throughout the colon. The appendix is visualized and appears normal. Normal abdominal aorta. Normal inferior vena cava. Normal retroperitoneum. Normal urinary bladder. IUD is seen within the uterus. Normal abdominal wall. Normal osseous structures. CT/Abdomen/Pelvis without Cont IMPRESSION: Tiny residual nonobstructive calculi seen in the lower pole calyx of the left kidney with mild left hydronephrosis. Large amount of fecal material is seen in the colon. IUD is seen within the pelvis. Electronically Signed: Doyle Harrington, at 8:58 EDT , Service support ,
== END ==
PROVIDERS: PCP Family Medicine
DX: N20.0 Calculus of kidney (principal)
CPT/HCPCS: 74176

== ENCOUNTER → 2019-09-08 16:24 | Outpatient (CLI) | payer BC, SELFPAY ==
[2019-07-28 08:41] VITALS: BMI 24.5
--- NOTE | 2019-09-08 16:32 | RAD_ITS ---
STUDY: X-RAY - ABDOMEN/PELVIS REASON FOR EXAM: Female, 34 years old. HX OF LEFT SIDE KIDNEY STONES. FOLLOW UP TECHNIQUE: Single AP view of the abdomen / pelvis. COMPARISON: CT scan 06/17/2019. FINDINGS: Moderate degree distention, otherwise unremarkable bowel gas pattern. There is no demonstrated free abdominal air. Cannot exclude left renal stones as seen on CT scan, although this exam is limited by overlying fecal material. IUD seen in the pelvis. The visualized liver, spleen and kidneys are grossly normal in size and morphology. Normal soft tissue structures. Normal visualized osseous structures. RAD/Abdomen Single View IMPRESSION: No definite acute abnormalities. Fecal retention. Possible left renal stones. Electronically Signed: Danny Moeller MD at 21:44 EDT , Service support ,
== END ==
PROVIDERS: PCP Family Medicine; Referring Provider Family Medicine; Visit Provider Family Medicine
DX: N20.0 Calculus of kidney (principal)
CPT/HCPCS: 74018

== ENCOUNTER → 2019-10-02 10:30 | Outpatient (CLI) | payer BC, SELFPAY ==
[2019-07-28 08:41] VITALS: BMI 24.5
[2019-10-02 10:38] LABS: Bacteria 0 SEEN /hpf (None Seen); Mucous, Urine 0 SEEN /hpf (<or=2+); Red Blood Cells-Urine 0 SEEN /hpf (0-5); White Blood Cells 0 SEEN /hpf (0-5)
[2019-10-02 10:53] LABS: Color, Urine Yellow (Yellow); Glucose, Dipstick Normal (Normal); Ketone-Dipstick Negative (Negative); Leukocyte Esterase-Dipstick Negative /ul (Negative); Nitrite-Dipstick Negative (Negative); Occult Blood-Urine Negative /ul (Negative); Protein-Dipstick Negative (Negative); Specific Gravity, Urine 1.015 (1.002-1.030); Urine Bilirubin Dipstick Negative (Negative); Urine Clarity Clear (Clear); Urine Urobilinogen Normal (Normal); Urine pH 6.5 (5.0 - 8.0)
[2019-10-02 10:58] LABS: Squamous Epithelial Cells - UA 0-5 SEEN /hpf (5-10)
[2019-10-02 11:35] LABS: PTHIN 59.3 pg/mL (18.4-80.1)
== END ==
PROVIDERS: PCP Family Medicine
DX: N39.0 Urinary tract infection, site not specified (principal)
CPT/HCPCS: 36415; 81001; 83970; 87086; 87088

== ENCOUNTER → 2019-10-13 | Outpatient (CLI) | payer BC, SELFPAY ==
[2019-07-28 08:41] VITALS: BMI 24.5
== END | disposition home or self-care (01) ==
LOC: LAB 08:03 → LABSPEC 08:07
PROVIDERS: PCP Family Medicine
DX: N20.0 Calculus of kidney (principal)
CPT/HCPCS: 82360

== ENCOUNTER → 2019-12-08 | Outpatient (CLI) | payer BC, SELFPAY ==
[2019-07-28 08:41] VITALS: BMI 24.5
== END | disposition home or self-care (01) ==
LOC: LABSPEC 15:17
PROVIDERS: PCP Family Medicine; Referring Provider Dermatology; Visit Provider Dermatology
DX: L08.0 Pyoderma (principal)
CPT/HCPCS: 87070; 87205

== ENCOUNTER → 2019-12-17 08:04 | Outpatient (CLI) | payer BC, SELFPAY ==
[2019-07-28 08:41] VITALS: BMI 24.5
--- NOTE | 2019-12-17 08:08 | RAD_ITS ---
STUDY: X-RAY - ABDOMEN/PELVIS REASON FOR EXAM: Female, 34 years old. LEFT SIDED PAIN, PT HAS H/O LEFT RENAL STONE TECHNIQUE: Single AP view of the abdomen / pelvis. COMPARISON: Comparison is made with prior examination dated 09/08/2019. FINDINGS: There is an abundance of fecal material throughout the colon. There is a 3.6 mm calculus in the midpole region of the left kidney. Stable tiny calcifications in the pelvis. IUD is seen within this. Normal visualized osseous structures. RAD/Abdomen Single View IMPRESSION: Left renal calculus. Electronically Signed: Doyle Harrington, at 10:41 EST , Service support ,
== END ==
PROVIDERS: PCP Family Medicine
DX: N20.0 Calculus of kidney (principal)
CPT/HCPCS: 74018

== ENCOUNTER → 2019-12-19 | Outpatient (CLI) | payer BC, SELFPAY ==
[2019-07-28 08:41] VITALS: BMI 24.5
== END | disposition home or self-care (01) ==
LOC: LABSPEC 08:44
PROVIDERS: PCP Family Medicine
DX: N20.0 Calculus of kidney (principal)
CPT/HCPCS: 81050; 83735

== ENCOUNTER → 2019-12-24 | Outpatient (CLI) | payer BC, SELFPAY ==
[2019-07-28 08:41] VITALS: BMI 24.5
[2019-12-24 09:48] LABS: (24 HR) Urine Calcium 283.5 mg/24 HR (42.0-353.0); 24HR UR TOTAL VOLUME 2700 ml; 24HR. Urine Creatinine 1.49 g/24 HR (0.70-1.90); Calcium Urine pH Range 1; Urine Calcium (Random) 10.5 (Not Estab.)
[2019-12-24 09:53] LABS: 24Hr.Lytes Total Volume 2700 mL; Sodium 24 HR UR 243 mmol/24h (40-220); Urine Sodium 90 mmol/L (Not Establ.)
== END | disposition home or self-care (01) ==
PROVIDERS: PCP Family Medicine
DX: N20.0 Calculus of kidney (principal)
CPT/HCPCS: 81050; 82340; 82570; 84300

== ENCOUNTER → 2020-03-18 14:29 | Outpatient (CLI) | payer BC, SELFPAY ==
[2020-03-04 15:04] VITALS: BMI 21.1
== END ==
PROVIDERS: PCP Family Medicine; Referring Provider Obstetrics & Gynecology; Visit Provider Obstetrics & Gynecology
DX: Z01.419 Encounter for gynecological examination (general) (routine) without abnormal findings (principal); Z80.3 Family history of malignant neoplasm of breast; Z80.41 Family history of malignant neoplasm of ovary
CPT/HCPCS: 36415

== ENCOUNTER → 2020-07-07 16:50 | Outpatient (CLI) | payer BC, SELFPAY ==
[2020-03-04 15:04] VITALS: BMI 21.1
--- NOTE | 2020-07-07 17:02 | RAD_ITS ---
HISTORY: KIDNEY STONES EXAMINATION/TECHNIQUE: XR Abdomen 1 View: COMPARISON: KUB 12/17/19, CT abdomen 06/17/19 FINDINGS: LINES AND TUBES: None. BOWEL GAS PATTERN: Non-obstructive. No bowel or stomach distention. FREE AIR: Not assessed on a single supine view. ORGANOMEGALY: Not seen. CALCIFICATIONS: 6 mm calcification in the region of the lower pole left kidney. BONES AND SOFT TISSUES: No acute pathology. RAD/Abdomen Single View IMPRESSION: 6 mm urinary calculus in the region of the lower pole left kidney. at 1940 Reported and signed by: Viktor Lau MD Electronically Signed: Viktor Lau MD at 19:39 EDT This report is pending additional review. Service support ,
== END ==
PROVIDERS: PCP Family Medicine; Referring Provider Urology; Visit Provider Urology
DX: N20.0 Calculus of kidney (principal)
CPT/HCPCS: 74018

== ENCOUNTER 2020-09-14 06:50 | Day surgery (SDC) | payer BC, SELFPAY ==
[2020-03-04 15:04] VITALS: BMI 21.1
[2020-09-14 07:16] VITALS: BP 113/73; PULSE 92; RESP 20; TEMP 36.3; O2SAT 100; BMI 22.6
[2020-09-14 07:16] LABS: Internal QC Validated? YES +Cl - CLEAR BKGD; Pregnancy, Urine Negative Negative
[2020-09-14] MEDS: Lactated Ringers 1,000 ML 100 ML IV ×2 (07:35→09:41)
--- NOTE | 2020-09-14 08:03 | PCM.OPRPT ---
Problems Associated Problem List Diagnoses (1) Renal calculus, left: Report of Operation Date of Procedure: 09/14/20 Pre-Operative Diagnosis: Left renal calculus Post-Operative Diagnosis: Same Surgery/Procedure Performed:: Left renal extracorporal shockwave lithotripsy Surgeon: Collette Aguilera Type of Anesthesia: General Specimen's removed: None Description of Procedure: The patient is a 35-year-old female with extensive history of urolithiasis and is status post left pyeloplasty and percutaneous nephrolithotomy on the left side as well. She now presents with a 6 mm left renal stone easily visualized on KUB. The decision was made to proceed with shockwave lithotripsy before the stone continues to grow in size. Informed consent was obtained. The patient was taken to the operating room and placed on the operating room table. Anesthesia monitored the head, neck, airway, IV access and vital signs throughout the case. Once anesthesia was appropriately ministered the patient was aligned with a lithotripter. The stone was easily visualized. Three thousand shocks were applied to this stone. The stone appeared to be well fragmented at the conclusion of the case. The patient was then awakened and taken to the recovery room in good condition. There were no complications during this procedure. Grafts/Implants Used: None Complications None Admit VTE Documentation VTE Present on Admission: Yes VTE Mechan Device Prophylaxis: SCD's VTE Pharm Prophylaxis ordered?: No Reason prophylaxis not ordered:: Treatment Not Indicated
--- NOTE | 2020-09-14 08:05 | PCM.DC ---
Discharge Instructions Diet Discharge Diet: No restrictions Activity Discharge Activity: Return to Normal Activity May resume sexual activity in: No Restrictions Dressing / Incision Call your doctor if you observe: Fever of 101 or Higher, Inability to urinate, Inability to have a bowel movement and Uncontrolled pain Follow Up Care Please Follow Up With: Collette Aguilera MD When: In the office in 2 to 3 weeks with a KUB just prior to the visit Please complete antibiotics given earlier this week. Test Results: Test results from this visit will be discussed in further detail at your follow-up appointment, if applicable. Discharge Plan Admission Attending Provider: Collette Aguilera Primary Care Provider: Franca Flores Discharge Orders/Prescriptions Prescriptions: New oxycodone-acetaminophen [Percocet] 5-325 mg tablet 1 tab PO Q8H PRN (Reason: pain) 7 Days Qty: 20 RF: 0 phenazopyridine [Pyridium] 200 MG tablet 200 mg PO TID PRN PRN (Reason: Bladder Spasms) 7 Days Qty: 30 RF: 0 Continued ivermectin [Soolantra] 1 % cream 1 applic TOPICAL PRN PRN (Reason: Skin Cleansing) RF: 0 Referrals / Follow Up: Franca Flores MD [Primary Care Provider] - Disposition Disposition (needs filled in before D/C Order can be placed): Home, Self Care
[2020-09-14] MEDS: Cefazolin 2 GM in 0.9% Normal Saline 100 ML IV (08:31)
[2020-09-14 09:20] VITALS: BP 111/70; BP 113/73; PULSE 81; RESP 16; TEMP 36.6; O2SAT 99
[2020-09-14 09:30] VITALS: BP 113/73; BP 116/71; PULSE 75; RESP 16; O2SAT 100
[2020-09-14 09:45] VITALS: BP 109/68; BP 113/73; PULSE 76; RESP 16; TEMP 37.1; O2SAT 99
[2020-09-14 10:45] VITALS: BP 113/73; BP 117/56; PULSE 77; RESP 16; TEMP 36.6; O2SAT 99
== END 2020-09-14 11:25 | disposition home or self-care (01) ==
LOC: SDC 06:52 → AC 06:52
PROVIDERS: PCP Family Medicine; Referring Provider Urology; Visit Provider Urology
PROC: (CPT 50590; principal; 2020-09-14 08:05)
DX: N20.0 Calculus of kidney (principal); Z87.442 Personal history of urinary calculi; Z20.822 Contact with and (suspected) exposure to COVID-19
CPT/HCPCS: 50590; 81025; 87426; C9803; J7120; J2405

== ENCOUNTER → 2020-10-06 15:43 | Outpatient (CLI) | payer BC, SELFPAY ==
--- NOTE | 2020-10-06 15:48 | RAD_ITS ---
STUDY: X-RAY - ABDOMEN/PELVIS REASON FOR EXAM: Female, 35 years old. KUB . Renal calculi. TECHNIQUE: Single AP view of the abdomen / pelvis. COMPARISON: Comparison is made with prior study dated 07/07/2020. FINDINGS: There is a moderate amount of colonic fecal material. The previously seen left renal calculus in the lower pole of the left kidney has decreased in size. I suspect a tiny residual calculus. There are calcified phleboliths in the pelvis. IUD is seen within the uterus. Normal visualized osseous structures. RAD/Abdomen Single View IMPRESSION: Interval decrease in size of the previously seen calculus in the lower pole calyx of the left kidney. Electronically Signed: Doyle Harrington MD at 7:34 EDT , Service support ,
== END ==
PROVIDERS: PCP Family Medicine; Referring Provider Urology; Visit Provider Urology
DX: N20.0 Calculus of kidney (principal)
CPT/HCPCS: 74018

== ENCOUNTER 2021-03-07 16:18 | Outpatient (CLI) | payer BC, SELFPAY ==
[2021-03-11 18:59] LABS: HPV APTIMA, High Risk Negative (Negative)
== END 2021-03-07 23:59 | disposition short-term general hospital (02) ==
LOC: LABSPEC 16:19
PROVIDERS: PCP Family Medicine; Visit Provider Obstetrics & Gynecology
DX: Z01.419 Encounter for gynecological examination (general) (routine) without abnormal findings (principal)
CPT/HCPCS: 87624; 88175; G0145

== ENCOUNTER → 2021-06-14 | Outpatient (CLI) | payer BC, SELFPAY ==
--- NOTE | 2021-06-14 12:41 | RAD_ITS ---
STUDY: X-RAY - ABDOMEN/PELVIS REASON FOR EXAM: Female, 36 years old. KUB- KIDNEY STONES TECHNIQUE: Single AP view of the abdomen / pelvis. COMPARISON: Comparison is made with prior study dated 10/06/2020. FINDINGS: There is an abundance of fecal material throughout the colon. The visualized liver, spleen and kidneys are grossly normal in size and morphology. There are calcified phleboliths in the pelvis. IUD seen within the pelvis. Normal visualized osseous structures. RAD/Abdomen Single View IMPRESSION: Phleboliths are seen within the pelvis more prominent on the left side. An IUD is seen within the pelvis. Large amount of fecal material is seen in the colon. Electronically Signed: Doyle Harrington MD at 14:48 EDT ,
== END | disposition home or self-care (01) ==
LOC: MTRAD 12:39
PROVIDERS: PCP Family Medicine; Referring Provider Urology; Visit Provider Urology
DX: N20.0 Calculus of kidney (principal)
CPT/HCPCS: 74018

== ENCOUNTER → 2021-06-18 | Outpatient (CLI) | payer BC, SELFPAY ==
--- NOTE | 2021-06-18 09:04 | US_ITS ---
EXAM: US renal. HISTORY: STONE-LT TECHNIQUE: US Kidney(s) complete (eg, kidneys and bladder) COMPARISON: None. LIMITATIONS: None. RIGHT KIDNEY Size: 11 cm Echogenicity: Normal. Parenchymal thickness: Normal. Hydronephrosis: None. Calculi: None. Cysts/masses: None. LEFT KIDNEY Size: 12.1 cm Echogenicity: Normal. Parenchymal thickness: Normal. Hydronephrosis: Moderate. Calculi: Few stones in the lower pole of the left kidney. The largest measures 10 mm. Cysts/masses: 2.3 cm parapelvic cyst versus a dilated calyx. BLADDER: Bilateral ureteral jets are identified. OTHER: None. CONCLUSION: Left nephrolithiasis. Moderate hydronephrosis of the left kidney. Electronically Signed: Kelvin Faustin MD at 3:49 EDT , US/Kidney and Bladder IMPRESSION: undefined
== END | disposition home or self-care (01) ==
PROVIDERS: PCP Family Medicine; Referring Provider Urology; Visit Provider Urology
DX: N20.0 Calculus of kidney (principal)
CPT/HCPCS: 76770

== ENCOUNTER → 2021-07-13 | Outpatient (CLI) | payer BC, SELFPAY ==
--- NOTE | 2021-07-13 12:12 | NM_ITS ---
CLINICAL: Female, 36 years old. HYDRONEPHROSIS LEFT KIDNEY -- TWO SURGERIES FOR UPJ OBSTRUCITON -- KIDNEY STONES NUCLEAR RENAL SCAN without and with IV Lasix TECHNIQUE: Following the intravenous administration of 10.3 mCi of Tc MAG3, immediate flow imaging, and static delayed nephrogram images of the kidneys were obtained. 10 mg IV Lasix administered at 20 minutes with subsequent imaging. COMPARISON STUDIES : NM - None. CR - Not available for review at this time. CT - Not available for review at this time. MR - Not available for review at this time. - 06/18/2021 FINDINGS: Flow to the kidneys is prompt and symmetric. Immediate static delayed nephrogram images demonstrate symmetric activity throughout both kidneys. Relatively flat renogram of the left kidney curve prior to IV Lasix but with normal decreased isotope activity (normal physiologic response). The right kidney demonstrates normal physiologic response prior to and following IV Lasix. Split function measures 50% on the left and 50% on the right. NM/Renal Scan w/ Pharm Intervent IMPRESSION: Patulous but nonobstructed left kidney (normal physiologic response to Lasix). Normal appearance of the right kidney. Electronically Signed: Todd Kat MD ([place]) at 13:51 EDT Reading Location ID and State: / [place] , Service support ,
== END | disposition home or self-care (01) ==
PROVIDERS: PCP Family Medicine
DX: N13.30 Unspecified hydronephrosis (principal)
CPT/HCPCS: 78708; A9562; J1940

== ENCOUNTER → 2021-12-13 | Outpatient (CLI) | payer BC, SELFPAY ==
--- NOTE | 2021-12-13 13:17 | RAD_ITS ---
STUDY: X-RAY - ABDOMEN/PELVIS REASON FOR EXAM: Female, 36 years old. History of renal calculi. TECHNIQUE: Single AP view of the abdomen / pelvis on 2 images. COMPARISON: CT of the abdomen and pelvis dated June 17, 2019. FINDINGS: Normal visualized lung bases. There is an unremarkable bowel gas pattern. There is no demonstrated free abdominal air. Multiple small calcifications projected over the lower pole of the left kidney which were seen on the prior CT. Phleboliths in the pelvis. Stable IUD in the mid pelvis. Normal visualized osseous structures. RAD/Abdomen Single View IMPRESSION: Stable calcifications projected over the lower pole of the left kidney compatible with nephrocalcinosis. No acute finding. Electronically Signed: Sachin Mike, at 13:37 EDT ,
== END | disposition home or self-care (01) ==
LOC: RAD 13:16
PROVIDERS: PCP Family Medicine
DX: N20.0 Calculus of kidney (principal); Z87.442 Personal history of urinary calculi
CPT/HCPCS: 74018

== ENCOUNTER → 2022-08-03 | Outpatient (CLI) | payer BC, SELFPAY ==
[2022-08-03 12:40] LABS: Cholesterol 325 mg/dL (200); High Density Lipoprotein 72 mg/dL; Triglycerides 57 mg/dL; Very Low Density Lipoprotein 11 mg/dL (5-40)
== END | disposition home or self-care (01) ==
LOC: BFHLAB 08:58
PROVIDERS: PCP Family Medicine; Visit Provider Family Medicine
DX: E78.49 Other hyperlipidemia (principal)
CPT/HCPCS: 36415; 80061

== ENCOUNTER 2022-09-20 15:38 | Outpatient (RCR) | payer BC, SELFPAY | END 2022-10-12 23:59 | LOC: NS 15:38 | PROVIDERS: PCP Family Medicine; Referring Provider Family Medicine; Visit Provider Family Medicine | DX: Z71.3 Dietary counseling and surveillance (principal); E78.49 Other hyperlipidemia | CPT/HCPCS: 97802 ==

== ENCOUNTER → 2022-09-20 | Outpatient (CLI) | payer BC, SELFPAY ==
[2022-09-29 09:51] LABS: Source Not Provided
== END | disposition home or self-care (01) ==
PROVIDERS: PCP Family Medicine
DX: N20.0 Calculus of kidney (principal)
CPT/HCPCS: 82360

== ENCOUNTER 2022-11-06 16:02 | Outpatient (RCR) | payer BC, SELFPAY ==
--- NOTE | 2022-11-06 16:32 | RAD_ITS ---
EXAM: XR ABDOMEN, 1 VIEW CLINICAL INDICATION: KIDNEY STONE TECHNIQUE: Frontal supine view of the abdomen/pelvis. COMPARISON: CT June 26, 2021, there were at least 2 stones in the left kidney multiple phleboliths pelvis and well-positioned IUD that time. Mildly prominent left renal pelvis without convincing ureter stone at that time. FINDINGS: LOWER THORAX: No acute pathology. INTRAPERITONEAL SPACE: Fairly midline IUD projecting over the pelvis. GASTROINTESTINAL TRACT: Mild gas and stool in the colon. No dilated small bowel loops. Calcific density projecting over bowel contents in the expected region of the left kidney measuring 5.5 mm, at the level of L2. Multiple small presumed phleboliths in the pelvis. ORGANS: No evidence for organomegaly. BONES/JOINTS: See above. SOFT TISSUES: No acute pathology. RAD/Abdomen Single View IMPRESSION: 1. Presumed left nephrolithiasis. 2. Multiple presumed phleboliths in the pelvis, at least 3 on the left and 2 on the right. 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 3. IUD. 4. Unremarkable bowel gas pattern. Electronically Signed: Erika Jeffers MD at 4:28 EDT ,
== END 2022-11-11 23:59 ==
LOC: NS 16:02
PROVIDERS: PCP Family Medicine; Referring Provider Family Medicine; Visit Provider Family Medicine
DX: Z71.3 Dietary counseling and surveillance (principal); E78.49 Other hyperlipidemia; N20.0 Calculus of kidney
CPT/HCPCS: 74018; 97803

== ENCOUNTER → 2022-12-15 | Outpatient (CLI) | payer BC, SELFPAY ==
[2022-12-15 12:48] LABS: Absolute Lymphocyte Count 2.88 X10^3/uL (0.83-4.51); Basophil# 0.06 X10^3/uL; Basophil% 0.9 % (0-1); Eosinophil# 0.32 X10^3/uL; Eosinophils% 4.6 % (0-5); Hematocrit 43.8 % (37-47); Hemoglobin 14.1 g/dL (12.0-15.0); Lymphocyte # 2.88 X10^3/ul (0.83-4.51); Lymphocyte % 41.7 % (19-41); Mean Corp Hgb Conc 32.2 g/dL (32-36); Mean Corpuscular Hgb 29.8 pg (27.0-32.0); Mean Corpuscular Volume 92.6 fL (81-99); Mean Platelet Vol. 9.3 fl (6.2-12.0); Monocyte# 0.63 X10^3/uL; Monocyte% 9.1 % (0-10); NRBC Flagged by Analyzer 0 % (0-5); Neutrophil % 43.4 % (47-70); Platelet Count 472 K/mm3 (150-450); RBC Distribution Width CV 12.1 % (11.6-14.6); RBC Distribution Width SD 41.5 fl (35.1-43.9); Red Blood Count 4.73 M/mm3 (4.2-5.4); White Blood Count 6.9 K/mm3 (4.4-11.0)
[2022-12-15 13:08] LABS: Follicle Stimulating Hormone 4.7 mIU/mL; Thyroid Stim Hormone (TSH) 2.61 uIU/mL (0.358-3.74)
[2022-12-19 10:54] LABS: Cholesterol 251 mg/dL (200); High Density Lipoprotein 56 mg/dL; Triglycerides 58 mg/dL; Very Low Density Lipoprotein 12 mg/dL (5-40)
== END | disposition home or self-care (01) ==
LOC: BFHLAB 09:05
PROVIDERS: PCP Family Medicine; Referring Provider Family Medicine; Visit Provider Family Medicine
DX: R61 Generalized hyperhidrosis (principal); E78.49 Other hyperlipidemia
CPT/HCPCS: 36415; 80061; 83001; 84443; 85025

== ENCOUNTER 2023-01-01 16:14 | Outpatient (RCR) | payer BC, SELFPAY | END 2023-01-11 23:59 | LOC: NS 16:14 | PROVIDERS: PCP Family Medicine; Referring Provider Family Medicine; Visit Provider Family Medicine | DX: Z71.3 Dietary counseling and surveillance (principal); E78.49 Other hyperlipidemia | CPT/HCPCS: 97803 ==

== ENCOUNTER → 2023-01-05 | Outpatient (CLI) | payer BC, SELFPAY ==
--- NOTE | 2023-01-05 13:15 | RAD_ITS ---
STUDY: X-RAY - ABDOMEN/PELVIS REASON FOR EXAM: Female, 37 years old. Follow-up of kidney stone. TECHNIQUE: Single AP view of the abdomen / pelvis. COMPARISON: Report of prior abdominal study dated November 07, 2021. FINDINGS: Lung bases not imaged. Normal bowel gas pattern with air seen to the rectosigmoid. 8 mm in diameter calcification projected over the midpole of the left kidney. Phleboliths. Normal visualized osseous structures. RAD/Abdomen Single View IMPRESSION: Left nephrocalcinosis. Electronically Signed: Sachin Mike MD at 15:17 EST ,
== END | disposition home or self-care (01) ==
LOC: RAD.FUTURE 13:07 → RAD 13:07
PROVIDERS: PCP Family Medicine
DX: N20.0 Calculus of kidney (principal); N13.5 Crossing vessel and stricture of ureter without hydronephrosis
CPT/HCPCS: 74018

== ENCOUNTER → 2023-01-19 | Outpatient (CLI) | payer BC, SELFPAY ==
[2023-01-19 20:10] LABS: Estradiol 49.9 pg/mL; Luteinizing Hormone 4.5 mIU/mL
== END | disposition home or self-care (01) ==
LOC: LAB 14:33
PROVIDERS: PCP Family Medicine; Referring Provider Obstetrics & Gynecology; Visit Provider Obstetrics & Gynecology
DX: R23.2 Flushing (principal)
CPT/HCPCS: 36415; 82670; 83002

== ENCOUNTER → 2023-01-23 | Outpatient (CLI) | payer BC, SELFPAY ==
[2023-01-23 17:30] LABS: Estradiol 53.6 pg/mL
== END | disposition home or self-care (01) ==
LOC: LAB 16:26
PROVIDERS: PCP Family Medicine; Referring Provider Obstetrics & Gynecology; Visit Provider Obstetrics & Gynecology
DX: R79.89 Other specified abnormal findings of blood chemistry (principal)
CPT/HCPCS: 36415; 82670

== ENCOUNTER → 2023-03-16 | Outpatient (CLI) | payer BC, SELFPAY ==
--- NOTE | 2023-03-16 10:04 | RAD_ITS ---
STUDY: X-RAY - ABDOMEN/PELVIS REASON FOR EXAM: Female, 37 years old. NEPHROLITHIASIS TECHNIQUE: Single AP view of the abdomen / pelvis. COMPARISON: None. FINDINGS: There is an abundance of fecal material throughout the colon. The visualized liver, spleen and kidneys are grossly normal in size and morphology. There are calcified phleboliths in the pelvis. IUD is seen within the pelvis. Normal visualized osseous structures. RAD/Abdomen Single View IMPRESSION: Calcified phleboliths are seen in the pelvis. IUD is seen within the pelvis. Electronically Signed: oDyle Harrington MD at 14:37 EST ,
== END | disposition home or self-care (01) ==
PROVIDERS: PCP Family Medicine
DX: N20.1 Calculus of ureter (principal)
CPT/HCPCS: 74018

== ENCOUNTER → 2023-03-28 | Outpatient (CLI) | payer BC, SELFPAY ==
[2023-03-30 15:08] LABS: Citric Acid, 24Ur 635 mg/24 hr (320-1240); Citric Acid, Ur 273 mg/L (Undefined)
== END | disposition home or self-care (01) ==
PROVIDERS: PCP Family Medicine
DX: N20.1 Calculus of ureter (principal)
CPT/HCPCS: 81050; 82507

== ENCOUNTER → 2023-05-07 | Outpatient (CLI) | payer BC, SELFPAY ==
[2023-05-07 08:45] LABS: (24 HR) Urine Calcium 262.5 mg/24 HR (42.0-353.0); 24HR UR TOTAL VOLUME 2100 ml; 24HR. Urine Creatinine 1.22 g/24 HR (0.70-1.90); 24Hr.Lytes Total Volume 2100 mL; Calcium Urine pH Range 2; Sodium 24 HR UR 128 mmol/24h (40-220); Urine Calcium (Random) 12.5 (Not Estab.); Urine Sodium 61 mmol/L (Not Establ.)
[2023-05-07 08:52] LABS: PTHIN 84.7 pg/mL (18.4-80.1)
[2023-05-07 09:20] LABS: Anion Gap 6 (5-15); BUN 15 mg/dL (7-18); Calcium,Total 8.7 mg/dL (8.5-10.1); Chloride 108 mmol/L (98-107); Creatinine, Serum 0.75 mg/dL (0.55-1.02); EST Glomerular Filtration Rate 93 mL/min (>60); Est Glom Filt Rate - Afr Amer 113 mL/min (>60); Glucose 100 mg/dL (74-106); Potassium 3.8 mmol/L (3.5-5.1); Sodium Level 139 mmol/L (136-145); Uric Acid 2.4 mg/dL (2.6-6.0)
[2023-05-18 11:30] LABS: Uric Acid, Ur 20.8 mg/dL (Not Estab.)
== END | disposition home or self-care (01) ==
LOC: LAB 07:50
PROVIDERS: PCP Family Medicine
DX: N20.1 Calculus of ureter (principal)
CPT/HCPCS: 80048; 81050; 82340; 82570; 83735; 83970; 83986; 84300; 84550; 84560

== ENCOUNTER → 2023-05-22 | Outpatient (CLI) | payer BC, SELFPAY ==
--- NOTE | 2023-05-22 16:49 | RAD_ITS ---
EXAM: XR ABDOMEN, 1 VIEW CLINICAL INDICATION: KIDNEY STONE TECHNIQUE: Frontal supine view of the abdomen/pelvis. COMPARISON: Abdominal radiograph, 2-24. CT abdomen and pelvis, 01/16/2019. FINDINGS: GASTROINTESTINAL TRACT: No significant abnormality. Non-obstructive. No bowel or stomach distention. ORGANS: Punctate radiodensity overlying the left renal silhouette perhaps indicative of nephrolithiasis. The largest calcifications identified on the comparison CT are without distinct correlate on the current exam. BONES/JOINTS: No acute pathology. SOFT TISSUES: No acute pathology. OTHER FINDINGS: IUD present. RAD/Abdomen Single View IMPRESSION: Punctate radiodensity overlying the left renal silhouette perhaps indicative of nephrolithiasis. The largest calcifications identified on the comparison CT are without distinct correlate on the current exam. Electronically Signed: Isreal Jackson DO at 0:02 EDT ,
== END | disposition home or self-care (01) ==
LOC: RAD 16:36
PROVIDERS: PCP Family Medicine
DX: N20.0 Calculus of kidney (principal)
CPT/HCPCS: 74018

== ENCOUNTER → 2023-05-28 | Outpatient (CLI) | payer BC, SELFPAY ==
--- NOTE | 2023-05-28 16:23 | US_ITS ---
STUDY: RENAL ULTRASOUND - COMPLETE REASON FOR EXAM: Female, 38 years old. KIDNEY STONE TECHNIQUE: Ultrasound evaluation of the kidneys was performed with real-time and static sesay-scale imaging. COMPARISON: 06/18/2021 FINDINGS: RIGHT KIDNEY: Normal location of the right kidney, which is normal in size. The right kidney measures 11.4 cm. There is a normal cortex of the right kidney. The renal cortex measures 1.4 cm. There is no right renal mass or cyst. There are no right renal calculi. There is no right hydronephrosis. DISTAL RIGHT URETER: There is non-visualization of the distal right ureter. There is no demonstrated right ureterovesical junction calculus. There is a visualized right ureteral jet. LEFT KIDNEY: Normal location of the left kidney, which is normal in size. The left kidney measures 14.0 cm. There is a normal cortex of the left kidney. The renal cortex measures 1.6 cm. There is no left renal mass or cyst. Additional nonobstructing stones left kidney. There is moderate hydronephrosis of the left kidney. DISTAL LEFT URETER: There is non-visualization of the distal left ureter. There is no demonstrated left ureterovesical junction calculus. There is a visualized left ureteral jet. BLADDER: The distended urinary bladder has a volume of 184 ml. The empty urinary bladder has a volume of 4 ml. There is a normal wall thickness of the distended urinary bladder. There is no demonstrated mass within the urinary bladder. There is an echogenic focus within the proximal urethra which may represent a ureteral stone. US/Kidney and Bladder IMPRESSION: 1. Continued moderate left hydronephrosis. 2. Questionable stone in the proximal urethra. Electronically Signed: Fredrick Stanley MD at 22:51 EDT ,
== END | disposition home or self-care (01) ==
LOC: US 16:21
PROVIDERS: PCP Family Medicine
DX: N20.0 Calculus of kidney (principal); R10.9 Unspecified abdominal pain
CPT/HCPCS: 76770

== ENCOUNTER → 2023-06-13 | Outpatient (CLI) | payer BC, SELFPAY ==
--- NOTE | 2023-06-13 17:52 | CT_ITS ---
STUDY: CT ABDOMEN AND PELVIS WITHOUT CONTRAST REASON FOR EXAM: Female, 38 years old. FLANK PAIN. Left hydronephrosis. RADIATION DOSAGE (If Supplied By Facility): CTDIvol = ( 6.04 ) mGy, DLP = ( 271.80 ) mGycm TECHNIQUE: Transaxial images were obtained from the dome of the diaphragm to the symphysis pubis without oral contrast, and without intravenous contrast. Sagittal and coronal images were reconstructed. Individualized dose optimization techniques were used for this CT. COMPARISON: Comparison is made with prior study dated June 17, 2019. FINDINGS: The visualized lung bases are unremarkable. The visualized portions of the heart are within normal limits. Normal liver. Normal gallbladder and extrahepatic biliary system. Normal spleen. Normal pancreas. Normal bilateral adrenal glands. Normal right kidney. Nonobstructive calculi are seen in the posterior lower pole calyx of the left kidney. The largest calculus measures 5.7 mm. Mild degree of left hydronephrosis and proximal left hydroureter although no ureteral obstruction is seen at this time. Large amount of residual food products are seen within the stomach. Normal small intestine. Large amount of fecal material is seen in the colon. The appendix is visualized and appears normal. Normal abdominal aorta. Normal inferior vena cava. Normal retroperitoneum. Normal urinary bladder. IUD is seen within the uterus. Calcified phleboliths are seen in the pelvis. Normal abdominal wall. Normal osseous structures. CT/Abdomen/Pelvis without Cont IMPRESSION: Large amount of fecal material is seen in the colon as well as a large amount of residual food particles seen within the stomach. Mild degree of left hydronephrosis and proximal left hydroureter although no obstructive uropathy is seen at this time. Electronically Signed: Doyle Harrington MD at 14:02 EDT ,
== END | disposition home or self-care (01) ==
LOC: CT 17:48
PROVIDERS: PCP Family Medicine
DX: R10.9 Unspecified abdominal pain (principal); N13.30 Unspecified hydronephrosis
CPT/HCPCS: 74176

== ENCOUNTER → 2023-06-14 | Outpatient (CLI) | payer BC, SELFPAY ==
[2023-06-14 10:03] LABS: Cholesterol 270 mg/dL (200); High Density Lipoprotein 69 mg/dL; Triglycerides 43 mg/dL; Very Low Density Lipoprotein 9 mg/dL (5-40)
== END | disposition home or self-care (01) ==
LOC: LAB 09:14
PROVIDERS: PCP Family Medicine; Referring Provider Family Medicine; Visit Provider Family Medicine
DX: E78.49 Other hyperlipidemia (principal)
CPT/HCPCS: 36415; 80061

== ENCOUNTER → 2023-07-18 | Outpatient (CLI) | payer BC, SELFPAY ==
[2023-07-18 08:38] LABS: Ionized Calcium 5.01 mg/dL (4.36-5.20)
[2023-07-18 10:07] LABS: Vitamin D,25 Hydroxy 21.6 ng/mL
== END | disposition home or self-care (01) ==
PROVIDERS: PCP Family Medicine; Referring Provider Family Medicine; Visit Provider Family Medicine
DX: R79.89 Other specified abnormal findings of blood chemistry (principal)
CPT/HCPCS: 36415; 82306; 82330

== ENCOUNTER → 2023-09-10 | Outpatient (CLI) | payer BC, SELFPAY ==
--- NOTE | 2023-09-10 17:35 | US_ITS ---
STUDY: RENAL ULTRASOUND - COMPLETE REASON FOR EXAM: Female, 38 years old. Calculus of kidney TECHNIQUE: Ultrasound evaluation of the kidneys was performed with real-time and static sesay-scale imaging. COMPARISON: Comparison is made with prior study dated May 28, 2023. FINDINGS: RIGHT KIDNEY: Normal location of the right kidney, which is normal in size. The right kidney measures 10.9 cm x 3.5 cm x 4.7 cm. There is a normal cortex of the right kidney. The renal cortex measures 1.0 cm. There is no right renal mass or cyst. There are no right renal calculi. There is no right hydronephrosis. DISTAL RIGHT URETER: There is non-visualization of the distal right ureter. There is no demonstrated right ureterovesical junction calculus. There is no demonstrated right ureteral jet. LEFT KIDNEY: Normal location of the left kidney, which is normal in size. The left kidney measures 12.4 cm x 4 cm x 5.4 cm. There is a normal cortex of the left kidney. The renal cortex measures 1.1 cm. There is no left renal mass or cyst. I suspect a 5 mm calculus in the left kidney. There is no left hydronephrosis. DISTAL LEFT URETER: There is non-visualization of the distal left ureter. There is no demonstrated left ureterovesical junction calculus. There is no demonstrated left ureteral jet. BLADDER: The distended urinary bladder has a volume of 57 ml.There is a normal wall thickness of the distended urinary bladder. There is no demonstrated mass within the urinary bladder. There are no demonstrated bladder calculi. Stable echogenic focus within the proximal urethra. This may represent a urethral stone. US/Kidney and Bladder IMPRESSION: Mild left hydronephrosis and nonobstructive calculus in the left kidney. Questionable stone in the proximal urethra. Electronically Signed: Doyle Harrington MD at 15:22 EDT ,
== END | disposition home or self-care (01) ==
PROVIDERS: PCP Family Medicine
DX: N20.0 Calculus of kidney (principal); R10.9 Unspecified abdominal pain; N28.1 Cyst of kidney, acquired
CPT/HCPCS: 76770

== ENCOUNTER → 2023-09-15 | Outpatient (CLI) | payer BC, SELFPAY ==
[2023-09-15 10:07] LABS: Ionized Calcium Order ORDER TUBE
[2023-09-17 08:03] LABS: Vitamin D,25 Hydroxy 85.7 ng/mL
== END | disposition home or self-care (01) ==
LOC: LAB 09:00
PROVIDERS: PCP Family Medicine; Referring Provider Family Medicine; Visit Provider Family Medicine
DX: R79.89 Other specified abnormal findings of blood chemistry (principal); N20.0 Calculus of kidney
CPT/HCPCS: 36415; 82306; 82330

== ENCOUNTER → 2023-09-17 | Outpatient (CLI) | payer BC, SELFPAY ==
[2023-09-17 08:21] LABS: (24 HR) Urine Calcium 347.4 mg/24 HR (42.0-353.0); 24HR UR TOTAL VOLUME 1800 ml; Calcium Urine pH Range 2; Urine Calcium (Random) 19.3 (Not Estab.)
== END | disposition home or self-care (01) ==
LOC: LAB 07:17 → LABSPEC 07:17
PROVIDERS: PCP Family Medicine; Referring Provider Family Medicine; Visit Provider Family Medicine
DX: R79.89 Other specified abnormal findings of blood chemistry (principal); N20.0 Calculus of kidney
CPT/HCPCS: 81050; 82340

== ENCOUNTER → 2023-09-19 | Outpatient (CLI) | payer BC, SELFPAY ==
[2023-09-19 08:59] LABS: PTHIN 63.7 pg/mL (18.4-80.1)
== END | disposition home or self-care (01) ==
LOC: LAB 07:40
PROVIDERS: PCP Family Medicine; Referring Provider Family Medicine; Visit Provider Family Medicine
DX: R79.89 Other specified abnormal findings of blood chemistry (principal)
CPT/HCPCS: 36415; 83970

== ENCOUNTER → 2023-11-22 | Outpatient (CLI) | payer BC, SELFPAY ==
--- NOTE | 2023-11-22 08:40 | RAD_ITS ---
EXAM: XR ABDOMEN, 1 VIEW CLINICAL INDICATION: KIDNEY STONE TECHNIQUE: Frontal supine view of the abdomen/pelvis. COMPARISON: No relevant prior studies available. FINDINGS: LOWER THORAX: No acute pathology. GASTROINTESTINAL TRACT: There is moderate stool in colon. Non-obstructive. No bowel or stomach distention. ORGANS: There are calcifications overlying the left renal shadow. There is an intrauterine device. No organomegaly. BONES/JOINTS: No acute pathology. SOFT TISSUES: No acute pathology. RAD/Abdomen Single View IMPRESSION: 1. Left-sided renal stones. 2. Moderate stool the colon which may represent constipation. Electronically Signed: Jose Beltran MD at 22:58 EDT ,
== END | disposition home or self-care (01) ==
LOC: RAD 08:34
PROVIDERS: PCP Family Medicine; Referring Provider Urology; Visit Provider Urology
DX: N20.0 Calculus of kidney (principal)
CPT/HCPCS: 74018

== ENCOUNTER → 2024-01-11 | Outpatient (CLI) | payer BC, SELFPAY ==
--- NOTE | 2024-01-11 10:30 | RAD_ITS ---
STUDY: X-RAY - ABDOMEN/PELVIS REASON FOR EXAM: Female, 38 years old. KIDNEY STONE TECHNIQUE: Single AP view of the abdomen / pelvis. COMPARISON: CT scan 01/16/2019, abdomen 11/22/2023. FINDINGS: Normal visualized lung bases. A single 1 cm left lower pole renal stone is currently seen. No definite stones along the course of the ureter. No definite stones on the right. There is an unremarkable bowel gas pattern. There is no demonstrated free abdominal air. The visualized liver, spleen and kidneys are grossly normal in size and morphology. Normal soft tissue structures. Normal visualized osseous structures. RAD/Abdomen Single View IMPRESSION: A single 1 cm left lower pole renal stone is currently seen. Electronically Signed: Danny Moeller MD at 16:49 EST ,
--- NOTE | 2024-01-11 10:30 | RAD_ITS ---
STUDY: X-RAY - ABDOMEN/PELVIS REASON FOR EXAM: Female, 38 years old. KIDNEY STONE TECHNIQUE: Single AP view of the abdomen / pelvis. COMPARISON: CT scan 01/16/2019, abdomen 11/22/2023. FINDINGS: Normal visualized lung bases. A single 1 cm left lower pole renal stone is currently seen. No definite stones along the course of the ureter. No definite stones on the right. There is an unremarkable bowel gas pattern. There is no demonstrated free abdominal air. The visualized liver, spleen and kidneys are grossly normal in size and morphology. Normal soft tissue structures. Normal visualized osseous structures. RAD/Abdomen Single View IMPRESSION: A single 1 cm left lower pole renal stone is currently seen. Electronically Signed: Danny Moeller MD at 16:49 EST ,
== END | disposition home or self-care (01) ==
LOC: RAD 10:19
PROVIDERS: PCP Family Medicine; Referring Provider Urology; Visit Provider Urology
DX: N20.0 Calculus of kidney (principal)
CPT/HCPCS: 74018

== ENCOUNTER → 2024-01-18 | Outpatient (CLI) | payer BC, SELFPAY ==
[2024-01-18 10:01] LABS: Absolute Lymphocyte Count 2.61 X10^3/uL (0.83-4.51); Absolute Neutrophil Count 2.9 X10^3/uL (2.0-7.7); Basophil# 0.05 X10^3/uL; Basophil% 0.8 % (0-1); Eosinophil# 0.29 X10^3/uL; Eosinophils% 4.5 % (0-5); Hematocrit 42.4 % (37-47); Hemoglobin 13.5 g/dL (12.0-15.0); Lymphocyte # 2.61 X10^3/ul (0.83-4.51); Lymphocyte % 40.5 % (19-41); Mean Corp Hgb Conc 31.8 g/dL (32-36); Mean Corpuscular Hgb 29.5 pg (27.0-32.0); Mean Corpuscular Volume 92.8 fL (81-99); Mean Platelet Vol. 9.4 fl (6.2-12.0); Monocyte# 0.56 X10^3/uL; Monocyte% 8.7 % (0-10); NRBC Flagged by Analyzer 0 % (0-5); Neutrophil # 2.91 X10^3/uL (2.7-7.7); Neutrophil % 45.2 % (47-70); Platelet Count 415 K/mm3 (150-450); RBC Distribution Width CV 12.3 % (11.6-14.6); RBC Distribution Width SD 42.3 fl (35.1-43.9); Red Blood Count 4.57 M/mm3 (4.2-5.4); White Blood Count 6.4 K/mm3 (4.4-11.0)
[2024-01-18 10:17] LABS: Vitamin D,25 Hydroxy 64.7 ng/mL
[2024-01-18 10:18] LABS: PTHIN 75.6 pg/mL (18.4-80.1)
[2024-01-18 10:40] LABS: ALB/GLOB Ratio 1.2 RATIO (0.9-2.4); AST(SGOT) 17 U/L (15-37); Alanine Aminotransfer ALT/SGPT 25 U/L (13-56); Albumin, Serum 4.1 g/dL (3.2-5.0); Alkaline Phosphatase 43 U/L (45-117); Anion Gap 7 (5-15); BUN 14 mg/dL (7-18); BUN/Creat Ratio 17.1 RATIO (10-20); Calcium,Total 9.1 mg/dL (8.5-10.1); Chloride 106 mmol/L (98-107); Cholesterol 285 mg/dL (200); Creatinine, Serum 0.82 mg/dL (0.55-1.02); EST Glomerular Filtration Rate 83 mL/min (>60); Est Glom Filt Rate - Afr Amer 101 mL/min (>60); Globulin 3.3 g/dL (2.2-4.2); Glucose 101 mg/dL (74-106); High Density Lipoprotein 77 mg/dL; Protein, Total 7.4 g/dL (6.4-8.2); Sodium Level 139 mmol/L (136-145); T4 Free Direct 1.07 ng/dL (0.76-1.46); Triglycerides 47 mg/dL; Very Low Density Lipoprotein 9 mg/dL (5-40)
== END | disposition home or self-care (01) ==
PROVIDERS: PCP Family Medicine; Referring Provider Family Medicine; Visit Provider Family Medicine
DX: Z00.00 Encounter for general adult medical examination without abnormal findings (principal); I49.9 Cardiac arrhythmia, unspecified; E78.49 Other hyperlipidemia
CPT/HCPCS: 36415; 80053; 80061; 82306; 83970; 84439; 84443; 85025

== ENCOUNTER → 2024-02-12 | Outpatient (CLI) | payer BC, SELFPAY ==
--- NOTE | 2024-02-12 07:35 | BI_ITS ---
MAMMOGRAPHY - BILATERAL SCREENING 3-D TOMOSYNTHESIS REASON FOR EXAM: Female, 38 years old. SCREENING PERTINENT HISTORY: No significant family history. TECHNIQUE: 2-D mammograms and 3-D Tomosynthesis of the breast (s) were performed. CAD was performed. COMPARISON: None. FINDINGS: The breast composition is Extermely dense tissue. Scattered benign calcifications are seen. No dense spiculated masses or suspicious microcalcifications are identified. No architectural distortion is identified. There is no skin thickening or retraction. There has been no significant change since the prior study. BI/SCRN MAMM (CAD)W/JOMAR BILAT IMPRESSION: No mammographic signs of malignancy. Routine yearly mammograms recommended. ASSESSMENT CATEGORY: BIRADS Category 1: Negative. A letter regarding these results will be sent to the patient by the facility within 30 days. FOLLOW UP RECOMMENDATION: Yearly follow up mammogram recommended. (A) Approximately 10% of breast cancers are not detected by mammography. A normal mammogram should not delay biopsy of a clinically suspicious abnormality. Electronically Signed: Fredrick Stanley MD at 8:41 EST ,
== END | disposition home or self-care (01) ==
LOC: OPBI 07:34
PROVIDERS: PCP Family Medicine; Referring Provider Family Medicine; Visit Provider Family Medicine
DX: Z12.31 Encounter for screening mammogram for malignant neoplasm of breast (principal)
CPT/HCPCS: 77063; 77067

== ENCOUNTER → 2024-02-12 | Outpatient (CLI) | payer BC, SELFPAY ==
[2024-02-12 11:35] LABS: Bacteria 0 SEEN /hpf (None Seen); Mucous, Urine 0 SEEN /hpf (<or=2+); White Blood Cells 0 SEEN /hpf (0-5)
--- NOTE | 2024-02-12 11:45 | RAD_ITS ---
STUDY: X-RAY - ABDOMEN/PELVIS REASON FOR EXAM: Female, 38 years old. KIDNEY STONES TECHNIQUE: Single AP view of the abdomen / pelvis. COMPARISON: 01/11/2024 FINDINGS: Intrauterine device in the pelvis. There is an unremarkable bowel gas pattern. 6 mm calcific opacity projecting over left kidney consistent with a left renal stone. No obvious ureteral stone. Normal soft tissue structures. Normal visualized osseous structures. RAD/Abdomen Single View IMPRESSION: Suspected 6 mm left renal stone. No definite ureteral stone. Electronically Signed: Fredrick Stanley MD at 23:58 EST ,
[2024-02-12 12:16] LABS: Color, Urine Yellow (Yellow); Glucose, Dipstick Normal (Normal); Ketone-Dipstick Negative (Negative); Leukocyte Esterase-Dipstick Negative /ul (Negative); Nitrite-Dipstick Negative (Negative); Occult Blood-Urine 250 /ul (Negative); Protein-Dipstick 15 mg/dl (Negative); Urine Bilirubin Dipstick Negative (Negative); Urine Clarity Sl. Cloudy (Clear); Urine Urobilinogen Normal (Normal)
[2024-02-12 12:41] LABS: Red Blood Cells-Urine 0-5 SEEN /hpf (0-5); Squamous Epithelial Cells - UA 0-5 SEEN /hpf (5-10)
== END | disposition home or self-care (01) ==
LOC: RAD 11:26
PROVIDERS: PCP Family Medicine
DX: R10.9 Unspecified abdominal pain (principal); R31.0 Gross hematuria; R30.0 Dysuria
CPT/HCPCS: 74018; 81001; 87086

== ENCOUNTER → 2024-03-04 | Outpatient (CLI) | payer BC, SELFPAY ==
[2024-03-04 12:04] LABS: Magnesium 2.4 mg/dL (1.6-2.6)
== END | disposition home or self-care (01) ==
PROVIDERS: PCP Family Medicine; Referring Provider Internal Medicine Cardiovascular Disease; Visit Provider Internal Medicine Cardiovascular Disease
DX: I47.29 Other ventricular tachycardia (principal)
CPT/HCPCS: 36415; 83735

== ENCOUNTER → 2024-03-17 | Outpatient (CLI) | payer BC, SELFPAY ==
--- NOTE | 2024-03-17 13:10 | ECHOD_ITS ---
Reason For Study: Arrhythmia Procedure This was a 2D Doppler, Color Flow transthoracic echocardiogram. Exam performed in department. Left Ventricle Normal left ventricle. The left ventricular ejection fraction is 65 %. Right Ventricle Normal right ventricle. Atria The left and right atria are normal. Mitral Valve Trivial mitral valve insufficiency. Tricuspid Valve Trivial tricuspid valve insufficiency. Normal pulmonary artery pressure. Aortic Valve Trisinus/trileaflet aortic valve. Pulmonic Valve The pulmonic valve is not well visualized. Great Vessels Normal sized aortic root. Pericardium/Pleural No pericardial effusion. MMode/2D Measurements & Calculations LVIDd: 4.6 cm IVSd: 0.70 cm Ao root diam: 2.8 cm LVIDs: 3.0 cm LVPWd: 0.63 cm RVDd: 3.0 cm FS: 34.8 % _ LAV(MOD-bp): 29.5 ml LVAd ap4: 26.3 cm2 SV(MOD-sp4): 46.4 ml LAV(MOD-bp) Indexed: 19.5 ml/m2 LVLd ap4: 7.6 cm SI(MOD-sp4): 30.7 ml/m2 LAV(MOD-sp2): 32.1 ml EDV(MOD-sp4): 73.1 ml LAV(MOD-sp4): 25.4 ml EDV(sp4-el): 77.0 ml LVAs ap4: 14.1 cm2 LVLs ap4: 6.0 cm ESV(MOD-sp4): 26.7 ml ESV(sp4-el): 27.9 ml EF(MOD-sp4): 63.5 % EF(sp4-el): 63.8 % _ SV(sp4-el): 49.1 ml LA A4 area: 11.8 cm2 LA dimension(2D): 2.7 cm _ RA A4 area: 9.8 cm2 TAPSE: 1.9 cm Time Measurements MV dec time: 0.20 sec Doppler Measurements & Calculations MV E max jose l: 89.2 cm/sec Lat Peak E' Jose L: 20.5 cm/sec Med Peak E' Jose L: 17.2 cm/sec MV A max jose l: 39.5 cm/sec E/E' lat: 4.4 E/E' med: 5.2 MV E/A: 2.3 _ MV V2 max: 117.3 cm/sec MV P1/2t max jose l: 117.3 cm/sec Ao V2 max: 118.6 cm/sec MV max P.5 mmHg MV P1/2t: 77.4 msec Ao max P.6 mmHg MV V2 mean: 49.2 cm/sec Ao V2 mean: 78.1 cm/sec MV mean P.3 mmHg MV dec slope: 443.8 cm/sec2 Ao mean P.9 mmHg MV V2 VTI: 33.3 cm MVA(P1/2t): 2.8 cm2 Ao V2 VTI: 22.6 cm AV (velocity ratio): 1.0 _ LV V1 max: 116.9 cm/sec PA V2 max: 101.8 cm/sec TR max jose l: 199.7 cm/sec LV V1 max P.5 mmHg PA V2 mean: 79.3 cm/sec TR max P.9 mmHg LV V1 mean P.9 mmHg LV V1 mean: 78.1 cm/sec LV V1 VTI: 22.6 cm ECHO/Echo Complete Interpretation Summary The left ventricular ejection fraction is 65 %. Ordering Physician: Luisito Merchant Referring Physician: Luisito Merchant Performed By: Jeffrey Traylor RCS
== END | disposition home or self-care (01) ==
PROVIDERS: PCP Family Medicine; Referring Provider Internal Medicine Cardiovascular Disease; Visit Provider Internal Medicine Cardiovascular Disease
DX: I47.29 Other ventricular tachycardia (principal)
CPT/HCPCS: 93306

== ENCOUNTER → 2024-04-03 | Outpatient (CLI) | payer BC, SELFPAY ==
--- NOTE | 2024-04-03 13:04 | CT_ITS ---
PROCEDURE: LIMITED CHEST CT CARDIAC ONLY REASON FOR EXAM: Screening for coronary artery calcification. TECHNIQUE: Multiple axial tomographic images were obtained without intravenous contrast administration. COMPARISON: 1 FINDINGS: CHEST: Lines and tubes: None. Mediastinum: No evidence of mediastinal hemorrhage. Heart: Normal heart size. No pericardial effusion. No coronary artery calcification is seen. Thoracic Aorta: No evidence of acute traumatic aortic injury. Lungs and Airways: The lungs are normally expanded and clear. Pleura: No pleural effusion. No pneumothorax. Bones: No acute osseous abnormality identified. CT/Limited Chest CT Cardiac Only IMPRESSION: No coronary artery calcification is seen. One or more dose reduction techniques were used (e.g., Automated exposure contr ol, adjustment of the mA and/or kV according to patient size, use of iterative reconstruction technique). Reading Location: [id number]
[2024-04-03 13:26] VITALS: BP 109/63; PULSE 62; RESP 14; TEMP 36.3; O2SAT 100; BMI 21.7
[2024-04-03 13:40] VITALS: BP 109/63; PULSE 72
[2024-04-03] MEDS: Nitroglycerin SL (ED/IMG/CATH) 0.4 MG TABLET SL (13:40)
[2024-04-03 13:43] VITALS: BP 109/48; PULSE 70; RESP 18; O2SAT 99
--- NOTE | 2024-04-28 11:25 | CCTA.WCONT ---
CCTA w/Cont Coronary Arteries Date of Study:: 05/01/24 Cardiac dysrhythmia Coronary Calcium Scoring: High-resolution Computed Tomographic imaging of the chest was performed on [04/03/2024], with particular attention paid to the coronary arteries. Intravenous contrast agent was administered per protocol and images reconstructed and displayed. LEFT MAIN CORONARY ARTERY: This arose from the left coronary cusp and bifurcates to left anterior descending artery and left circumflex artery. No significant stenosis was noted. Coronary calcium score of 0 is present. [] LEFT ANTERIOR DESCENDING CORONARY ARTERY: This arose from the left main coronary artery. No significant atherosclerotic plaquing was noted. There was some motion artifact present. Coronary calcium score of 0. [] LEFT CIRCUMFLEX CORONARY ARTERY: Nondominant left circumflex artery with no coronary calcification present and no significant atherosclerotic plaquing present. [] RIGHT CORONARY ARTERY: Dominant right coronary artery with no significant atherosclerotic plaquing and no coronary obstruction noted. CORONARY CALCIUM SCORE: Total Agatston score of 0 CT angiogram demonstrating mild motion artifact, coronary calcium score of 0, and nonobstructive coronary disease. []
== END | disposition home or self-care (01) ==
PROVIDERS: PCP Family Medicine; Referring Provider Internal Medicine Cardiovascular Disease; Visit Provider Internal Medicine Cardiovascular Disease
DX: I47.29 Other ventricular tachycardia (principal); R00.2 Palpitations
CPT/HCPCS: 75571; 75574; 76380; Q9967

== ENCOUNTER → 2024-05-23 | Outpatient (CLI) | payer BC, SELFPAY ==
--- NOTE | 2024-05-23 13:09 | RAD_ITS ---
EXAM: XR Abdomen, 1 View CLINICAL INDICATION: KIDNEY STONE TECHNIQUE: Frontal supine view of the abdomen/pelvis. COMPARISON: No relevant prior studies available. FINDINGS: GASTROINTESTINAL TRACT: Fecal retention in the colon consistent with constipation. No dilation. ORGANS: Left renal pelvic calculi, largest measuring up to 12 mm. BONES/JOINTS: Unremarkable. No acute fracture. RAD/Abdomen Single View IMPRESSION: 1. Left renal pelvic calculi, largest measuring up to 12 mm. 2. Fecal retention in the colon consistent with constipation. Reading Location: [facility]
== END | disposition home or self-care (01) ==
LOC: RAD 13:04
PROVIDERS: PCP Family Medicine; Referring Provider Urology; Visit Provider Urology
DX: N20.0 Calculus of kidney (principal)
CPT/HCPCS: 74018

== ENCOUNTER → 2024-05-26 | Outpatient (CLI) | payer BC, SELFPAY ==
[2024-05-26 15:01] LABS: PTHIN 45 pg/mL (11-61)
[2024-05-26 15:04] LABS: Vitamin D,25 Hydroxy 74.4 ng/mL (30-100)
[2024-05-26 15:16] LABS: Cholesterol 170 mg/dL (<=200); High Density Lipoprotein 68 mg/dL; Low Density Lipoprotein Calc. 89 mg/dL; Triglycerides 62 mg/dL; Very Low Density Lipoprotein 12 mg/dL (5-40); cholesterol:hdl ratio screen 2.49
[2024-05-26 15:22] LABS: ALB/GLOB Ratio 1.6 RATIO (0.9-2.4); AST(SGOT) 25 U/L (<=31); Alanine Aminotransfer ALT/SGPT 23 U/L (<=34); Albumin, Serum 4.8 g/dL (3.5-5.0); Alkaline Phosphatase 45 U/L (35-104); Anion Gap 12 (5-15); BUN 14 mg/dL (4-19); BUN/Creat Ratio 17.5 RATIO (10-20); Calcium,Total 9.8 mg/dL (7.6-11.0); Carbon Dioxide 24.5 mmol/L (21.0-32.0); Chloride 103 mmol/L (98-108); Creatinine, Serum 0.77 mg/dL (0.70-1.20); EST Glomerular Filtration Rate 102 (>60); Glucose 97 mg/dL (70-99); Protein, Total 7.8 g/dL (5.9-8.4); Sodium Level 139 mmol/L (133-145); Total Bilirubin 0.63 mg/dL (0.00-1.30)
== END | disposition home or self-care (01) ==
LOC: LAB 13:39
PROVIDERS: PCP Family Medicine; Referring Provider Family Medicine; Visit Provider Family Medicine
DX: E78.49 Other hyperlipidemia (principal); N25.81 Secondary hyperparathyroidism of renal origin
CPT/HCPCS: 36415; 80053; 80061; 82306; 83970

== ENCOUNTER → 2024-06-18 | Outpatient (CLI) | payer BC, SELFPAY ==
[2024-06-18 09:49] LABS: Absolute Lymphocyte Count 2.61 X10^3/uL (0.83-4.51); Absolute Neutrophil Count 3.2 X10^3/uL (2.0-7.7); Basophil# 0.03 X10^3/uL; Basophil% 0.4 % (0-1); Eosinophil# 0.28 X10^3/uL; Eosinophils% 4.1 % (0-5); Hematocrit 40.1 % (37-47); Hemoglobin 13.6 g/dL (12.0-15.0); Lymphocyte # 2.61 X10^3/ul (0.83-4.51); Lymphocyte % 38.5 % (19-41); Mean Corp Hgb Conc 33.9 g/dL (32-36); Mean Corpuscular Hgb 30.7 pg (27.0-32.0); Mean Corpuscular Volume 90.5 fL (81-99); Mean Platelet Vol. 9.4 fl (6.2-12.0); Monocyte# 0.61 X10^3/uL; NRBC Flagged by Analyzer 0 % (0-5); Neutrophil # 3.23 X10^3/uL (2.7-7.7); Neutrophil % 47.7 % (47-70); Platelet Count 379 K/mm3 (150-450); RBC Distribution Width CV 12.5 % (11.6-14.6); RBC Distribution Width SD 41.3 fl (35.1-43.9); Red Blood Count 4.43 M/mm3 (4.2-5.4); White Blood Count 6.8 K/mm3 (4.4-11.0)
[2024-06-18 10:28] LABS: Anion Gap 10 (5-15); BUN 12 mg/dL (4-19); Calcium,Total 9.7 mg/dL (7.6-11.0); Carbon Dioxide 24.2 mmol/L (21.0-32.0); Chloride 105 mmol/L (98-108); Creatinine, Serum 0.86 mg/dL (0.70-1.20); EST Glomerular Filtration Rate 89 (>60); Glucose 103 mg/dL (70-99); Magnesium 2.2 mg/dL (1.5-2.2); Sodium Level 139 mmol/L (133-145)
== END | disposition home or self-care (01) ==
LOC: LAB 08:43
PROVIDERS: PCP Family Medicine; Referring Provider Physician Assistant Medical; Visit Provider Physician Assistant Medical
DX: I47.29 Other ventricular tachycardia (principal)
CPT/HCPCS: 36415; 80048; 83735; 84443; 85025

== ENCOUNTER → 2024-06-19 | Outpatient (CLI) | payer BC, SELFPAY | END | disposition home or self-care (01) | LOC: PSN 07:01 | PROVIDERS: PCP Family Medicine; Referring Provider Physician Assistant Medical; Visit Provider Physician Assistant Medical | DX: R00.2 Palpitations (principal) | CPT/HCPCS: 93225; 93226 ==

== ENCOUNTER → 2024-09-05 | Outpatient (CLI) | payer BC, SELFPAY ==
--- NOTE | 2024-09-05 11:57 | NM_ITS ---
PROCEDURE: RENAL SCAN W/ PHARM INTERVENT 09/05/2024 REASON FOR EXAM: HYDRONEPHROSIS TECHNIQUE: Technetium-99m DTPA intravenously with planar imaging of the abdomen. Immediate bloodflow and delayed renogram images with computer-reconstructed renogram curves. 10 mg Lasix intravenously 15 minutes after the radiopharmaceutical. RADIOPHARMACEUTICAL: Technetium 99 M Mag 3 DOSE 11mCi IV. COMPARISON: Nuclear medicine renal scan of 07/13/2021. FINDINGS: Perfusion: Prompt, and symmetric. Time-Activity Curves Left: Given the difficulty of the prominent left-sided collecting system from the cortex, an inaccurate left-sided time to peak was seen. Right: Normal. Differential function: 49.6 % on the right and 50.4 % on the left. Cortical time to peak: 1.87 minutes on the left and 1.37 minutes on the right. T-1/2: 17.4 minutes on the left and 5.9 minutes on the right. Following intravenous furosemide administration, prompt emptying the collecting systems is seen. Additionally, symmetric cortical appearance is then also noted. NM/Renal Scan w/ Pharm Intervent IMPRESSION: Asymmetrically prominent left-sided collecting system again seen, similar to th e prior study of 2021. No evidence obstruction is seen on either side. Reading Location: [place] [id number]
== END | disposition home or self-care (01) ==
LOC: NM 11:53
PROVIDERS: PCP Family Medicine
DX: N13.30 Unspecified hydronephrosis (principal)
CPT/HCPCS: 78708; A9562; J1938

== ENCOUNTER → 2024-10-30 | Outpatient (CLI) | payer BC, SELFPAY ==
[2024-10-30 08:29] LABS: Mucous, Urine 0 SEEN /hpf (<or=2+); Red Blood Cells-Urine 0 SEEN /hpf (0-5)
[2024-10-30 09:27] LABS: Color, Urine Yellow (Yellow); Glucose, Dipstick Normal (Normal); Ketone-Dipstick Negative (Negative); Leukocyte Esterase-Dipstick Negative /ul (Negative); Nitrite-Dipstick Negative (Negative); Occult Blood-Urine Negative /ul (Negative); Protein-Dipstick 15 mg/dl (Negative); Specific Gravity, Urine 1.005 (1.002-1.030); Urine Bilirubin Dipstick Negative (Negative)
[2024-10-30 09:36] LABS: PTHIN 49 pg/mL (11-61); Squamous Epithelial Cells - UA 0-5 SEEN /hpf (5-10); Transitional Epithelial - Ur 0-5 SEEN /hpf (0-5)
[2024-10-30 10:23] LABS: Albumin, Serum 4.5 g/dL (3.5-5.0); Anion Gap 11 (5-15); BUN 14 mg/dL (4-19); BUN/Creat Ratio 17.3 RATIO (10-20); Calcium,Total 9.3 mg/dL (7.6-11.0); Carbon Dioxide 23.9 mmol/L (21.0-32.0); Chloride 105 mmol/L (98-108); Glucose 101 mg/dL (70-99); Magnesium 2.3 mg/dL (1.5-2.2); Potassium 4.6 mmol/L (3.3-5.1); Uric Acid 2.7 mg/dL (2.6-6.0); Vitamin D,25 Hydroxy 95.1 ng/mL (30-100)
[2024-10-30 10:51] LABS: Creatinine, Urine (random) 61.30 mg/dL (28.00-217.00); Microalbumin,Random Urine < 12.0 mg/L (<20 mg/L); Protein, Urine (Random) 6.4 mg/dL (0.0-12.0); Protein:Creat Ratio 105 mg/g CRE (0-200)
== END | disposition home or self-care (01) ==
LOC: LAB 08:24
PROVIDERS: PCP Family Medicine
DX: N20.0 Calculus of kidney (principal)
CPT/HCPCS: 36415; 80069; 81001; 82043; 82306; 82570; 83735; 83970; 84156; 84550